=== PATIENT | female | born 1940 | race Caucasian/White ===

== ENCOUNTER → 2016-12-19 | Day surgery (SDC) | payer OTHER, BC ==
[2016-12-12 13:32] VITALS: Ht 162.6 cm; Wt 67.3 kg
[~2016-12-19] VITALS: Ht 162.6 cm; Wt 67.3 kg
[~2016-12-19] MED LIST: ATROPINE SULFATE 0.1 MG/ML 5ML SYR IV PRN; BUPIVACAINE/EPINEPHRINE 0.5% MPF 1:200,000 30 ML VIAL ONE; CALC-354 PO; CEFAZOLIN 1000MG/55 ML D5W IV SCH; CHLOTAB3 PO; CITA20TA9 PO; DLM30 PO; DRGTP25 TD; EpHEDrine SULFATE INJ 50 MG/ML AMP IV PRN; FENTANYL CITRATE INJ 50 MCG/1 ML 2 ML VIAL IV PRN; FENTANYL CITRATE INJ 50 MCG/1 ML 2 ML VIAL ONE; FNTTP25 TOP; GABA1CAP5 PO; GINGER ROOT PO; LACTATED RINGER'S 1000ML 1,000 ML IV SCH; LEVO75CA2 PO; LIDOCAINE HCL 2% 2 ML VIAL (20MG/ML) ONE; LIDOCAINE/EPINEPHRINE 1% INJ 50 ML VIAL ONE; MAGN1TAB15 PO; METOCLOPRAMIDE HCL INJ 5 MG/ML 2 ML VIAL IV PRN; MIDAZOLAM HCL 1 MG/ML 2ML VIAL ONE; MULT-506 PO; ONDA4TAB46 PO; ONDANSETRON INJ 2 MG/ML 2 ML VIAL IV PRN; OXYC-57 PO; OXYCODONE/ACETAMINOPHEN 5-325 TAB PO PRN; PANT40TA PO; POTA10CA28 PO; PROM25TA9 PO; PROPOFOL IV EMULSION 10 MG/ML 20 ML VIAL IV ONE; SIMV20TA2 PO; SODIUM CHLORIDE 0.9% 1000ML 1,000 ML IV SCH; TRIA37.5 PO; TYLOTC500 PO
--- NOTE | 2016-12-19 08:03 | History & Physical Bridge Note ---
H&P Re-Evaluation Bridge Note: I have examined the patient, reviewed the History & Physical and in the interval since the performance of the History & Physical I have noted the following changes of clinical significance: No changes noted
--- NOTE | 2016-12-19 08:57 | [facility] Post Operative Brief Note ---
Immediate Operative Summary Operative Date Dec 19, 2016. Pre-Operative Diagnosis Left Carpal Tunnel Syndrome Post-Operative Diagnosis Same Procedure(s) Performed Left Carpal Tunnel Release Surgeon Dr. Mon Adjustment Examiner Surgeon(s) Bashir Maria PA-C, kellee coulter ms3 Estimated Blood Loss Minimal Findings none Specimens None Anesthesia local with IV sedation Complication(s) None Disposition Recovery Room / PACU
[2016-12-19 08:58] VITALS: TEMP 36.5
--- NOTE | 2016-12-19 08:59 | Medical Student: [facility] ---
Immediate Operative Summary Operative Date Dec 19, 2016. Pre-Operative Diagnosis Left Carpal Tunnel Syndrome Post-Operative Diagnosis Left Carpal Tunnel Syndrome Procedure(s) Performed Left Carpal Tunnel Release Surgeon Dr. Mon Agile Business Analyst Surgeon(s) XAVIER Maria PA-C Estimated Blood Loss Minimal Findings None Specimens None Complication(s) None Disposition Recovery Room / PACU
--- NOTE | 2016-12-19 08:59 | [facility] Operative Report ---
Operative Report Operative Date Dec 19, 2016. Pre-Operative Diagnosis Left Carpal Tunnel Syndrome Post-Operative Diagnosis Same Procedure(s) Performed Left Carpal Tunnel Release Surgeon Dr. Mon Manufacturing Analyst Surgeon(s) Bashir Maria PA-C, kellee coulter ms3 Estimated Blood Loss Minimal Findings NA Specimens None Complication(s) None Disposition Recovery Room / PACU I attest to the content of the Intraoperative Record and any orders documented therein. Any exceptions are noted below.
--- NOTE | 2016-12-19 09:02 | Discharge Instructions ---
Discharge Instructions Admission Reason for Admission: Left Carpal Tunnel Syndrome;Z01.818,G56.02 Discharge Discharge Diagnosis / Problem: Left carpal tunnel release Discharge Goals Goal(s): Decrease discomfort, Improve function, Increase independence Activity Recommendations Activity Limitations: as noted below Lifting Limitations: until after follow-up appointment Exercise/Sports Limitations: until after follow-up appointment May Resume Sexual Activity: when tolerated Shower/Bathe: tomorrow, keep incision dry Driving or Machine Use: resume 1 day after discharge No lifting with left upper extremity . Instructions / Follow-Up Instructions / Follow-Up The following are instructions to follow after minor hand surgery. ACTIVITY RECOMMENDATIONS: * Minimize activity until your first visit after surgery. * No excessive walking, jogging, sports or laboring. * Return to activity is individualized. Most patients are able to return to everyday activities within 2 weeks. * Return to sports or intensive labor usually occurs at 1-2 months. * DRIVING: Driving may be resumed when you feel you have adequate pain control and use of the hand. * BATHING: You may shower or sponge-bathe immediately after surgery. The dressing will need to be covered with a plastic bag or plastic wrap until the dressing is changed on the fourth or fifth day after surgery. Once the dressing has been changed on the fourth or fifth day after surgery, you may shower and get the incision wet. * Wash with regular soap and water. * Do not bathe (submerge the incision), soak, swim or use a hot tub until the incision is completely healed over with normal skin and the doctor has given the OK to proceed. * There is no need to apply any ointments, powders or salves to your incision. * Do not apply alcohol or hydrogen peroxide directly to the incision. Diluted peroxide (50:50 mixture with sterile saline) may be used to clean dried blood from around the incision area. WORK/SCHOOL: * You may return to sedentary work or school when you are feeling comfortable. This is usually 3-7 days after surgery. * Expect increased discomfort with increased activity. Continue to elevate and ice the hand as much as possible. DIET: * Resume previous diet. MEDICATIONS: * You will have a prescription for pain medication and an anti-inflammatory medication after surgery. Use the pain pills for severe pain and the anti-inflammatory for less severe pain. * Once the pain pills have run out, try to use the anti-inflammatory. If this is not effective then contact the office for assistance. * The pain medication may cause nausea, constipation and sleepiness. You should see how they affect you before driving or similar activity. * The anti-inflammatory may cause stomach upset and bleeding. If this occurs, let your doctor know immediately . * Some patients may need blood clot prevention. This can be done with either a pill or a simple shot. Your doctor will advise you on when to begin these medications and how to take them. * Do not take aspirin or other anti-inflammatory products (i.e. Advil or Aleve ) if taking blood thinner medication. * Take a stool softener like Colace or a stimulant like Senokot to prevent constipation. SPECIAL CARE INSTRUCTIONS: ICE: * Do not apply ice directly to the skin. * Use a thin dressing or stockinet between the skin and ice bag. The dressing in place after surgery will suffice. * Apply ice for 20-30 minutes and repeat every 2-4 hours. This is especially important for the first 3-7 days after surgery. * Once the pain improves, use ice as needed. ELEVATION: * Keep your hand elevated at or above the level of your heart as much as possible. * Expect some increased discomfort and swelling if you allow your hand to hang down for any length of time. DRESSING: * Your dressing will be changed 4-5 days after surgery by the physical therapist or physician's assistant secretary. Leave your dressing intact until this time. * You may then change your dressing daily with clean dry gauze or Band-aids and a soft wrap or stockinet. * Always wash your hands prior to touching the incision area. * Once the stitches are removed, you may leave the wound open to air or cover with a thin bandage. * There is no need to apply any ointments, powders or salves to your incision. * Expect some bloody drainage for the first few days after surgery. * Leave the tape strips in place (if present) for 5-7 days. * The initial dressing after surgery may become soaked with blood or fluid which is normal. You may reinforce your dressing with clean, dry gauze as needed. BRACE: * Bracing is generally not needed after routine hand surgery. THERAPY: * Physical therapy may be prescribed after your surgery. * For carpal tunnel and trigger digit surgery you may begin moving your fingers and wrist immediately after surgery as tolerated. * Be careful to not overuse. * Once the sutures are removed, further range of motion exercises can be performed. * Hand incisions may be very sensitive for a few months after surgery so avoid excessive pressure on the incision. If necessary, use a padded weightlifters' glove. * You may massage the incision with skin cream to make it less sensitive and reduce scarring. * Hand strength usually returns with normal use. * If needed, squeezing a soft sponge or Play-dough may help. * Your doctor will recommend physical therapy if necessary. PROBLEMS/QUESTIONS: * If you have any problems such as severe pain, numbness, tingling or high fevers or if you have any questions, please contact the office at [phone]. * It is not uncommon to have some numbness and tingling after the surgery especially if you have had a nerve block done. This should gradually improve over the first 1- 2 days. If this persists longer or worsens then contact the office. FOLLOW UP VISIT: * If not already scheduled, please call the office at to schedule follow-up appointments for approximately 10 days, 6 weeks and 3 months after surgery. Current Hospital Diet Patient's current hospital diet: Discharge Diet Recommended Diet: Regular Diet Procedures Procedures Performed: Left Carpal Tunnel Release Pending Studies Studies pending at discharge: no Medical Emergencies . Who to Call and When: Medical Emergencies: If at any time you feel your situation is an emergency, please call 911 immediately. . Non-Emergent Contact Non-Emergency issues call your: Primary Care Provider Call Non-Emergent contact if: temperature is above 101.5, your pain is not controlled, wound has increased drainage, you have any medication questions . "Provider Documentation" section prepared by Pardeep Maria. VTE Core Measure Inpt VTE Proph given/why not?: Treatment not indicated [place] Drug Monitoring Program Search Results: no issues identified
--- NOTE | 2016-12-19 09:21 | Anesthesiology Progress Note ---
Anesthesia Post Op Note Date & Time Dec 19, 2016 at 09:21 Vital Signs Pain Intensity: 0 Vital Signs Past 12 Hours Date Time Temp Pulse Resp B/P Pulse Ox O2 Delivery O2 Flow Rate FiO2 12/19/16 08:58 36.5 57 16 144/74 98 Room Air 12/19/16 07:10 36.9 58 18 144/82 95 Room Air Notes Mental Status: alert / awake / arousable, participated in evaluation Pt Amnestic to Procedure: Yes Nausea / Vomiting: adequately controlled Pain: adequately controlled Airway Patency, RR, SpO2: stable & adequate BP & HR: stable & adequate Hydration State: stable & adequate Anesthetic Complications: no major complications apparent
[2016-12-19 09:22] VITALS: BP 128/61; PULSE 64; O2SAT 95
--- NOTE | 2016-12-19 09:22 | OPERATIVE REPORT ---
DATE OF OPERATION: 12/19/2016 PREOPERATIVE DIAGNOSIS: Left carpal tunnel syndrome. POSTOPERATIVE DIAGNOSIS: Same. PROCEDURE: Open left carpal tunnel release. SURGEON: Dr. Jay Mon. BELT TENDER: Bashir Maria, physician's assistant center director. No resident or fellow available. SECOND BELT TENDER: Richard Adair, [employer] third year medical student. ANESTHESIA: Local with IV sedation. INDICATIONS OF PROCEDURE: The patient is a 76-year-old female with left carpal tunnel syndrome, which has been refractory to nonsurgical methods of management and she has elected to proceed with operative intervention. PROCEDURE IN DETAIL: Informed consent was obtained. The patient was identified as Christina Andrews. She identified the operative site as the left hand. I marked it with my initials. A preop surgical time-out was performed. A preop dose of IV antibiotics was given. She was taken to the operating room and positioned supine on the hospital stretcher. The left arm was placed on a hand table and a tourniquet on the left upper arm. The examination was unremarkable. The limb was prepped and draped in the usual sterile fashion. A carpal tunnel block with approximately 8 mL of 1% lidocaine with epinephrine was given. Left arm prepped and draped in the usual sterile fashion. DVT prophylaxis was not indicated. The limb was exsanguinated with the Esmarch and tourniquet inflated to 225 mmHg. A longitudinal incision was made in line with the 3rd webspace beginning at Philip's cardinal line and proceeding just short of the distal wrist crease. Blunt dissection was performed to subcutaneous tissues. Superficial palmar fascia was divided. Transverse carpal ligament was identified and divided in line with the 3rd webspace proximally and distally. Proximally up into the distal forearm fascia, a good wide decompression was obtained. The nerve and the contents of the carpal canal looked normal. The wound was irrigated and closed with horizontal mattress interrupted 4-0 nylon sutures and a soft sterile dressing was applied. The tourniquet was let down after approximately 20 minutes of inflation. There were no specimens or complications. Counts were correct at the end of case. Blood loss was minimal. At the conclusion of the operation, I spoke to the patient's and informed him of my findings. Postoperative instructions were given. She will be rehabilitated according to the carpal tunnel pathway. I attest to the content of the Intraoperative Record and any orders documented therein. Any exceptio ns are noted below.
== END | disposition home or self-care (01) ==
LOC: X.SURG 06:53
PROVIDERS: ATTEND Physical Medicine & Rehabilitation Sports Medicine
DX: G56.02 Carpal tunnel syndrome, left upper limb (principal); F41.9 Anxiety disorder, unspecified; F32.9 Major depressive disorder, single episode, unspecified; I10 Essential (primary) hypertension; E03.9 Hypothyroidism, unspecified; E78.5 Hyperlipidemia, unspecified; Z88.8 Allergy status to other drugs, medicaments and biological substances; Z82.49 Family history of ischemic heart disease and other diseases of the circulatory system

== ENCOUNTER → 2017-03-03 | Outpatient (CLI) | payer OTHER, BC ==
[~2017-03-03] MED LIST changes: -ATROPINE SULFATE 0.1 MG/ML 5ML SYR IV PRN; -BUPIVACAINE/EPINEPHRINE 0.5% MPF 1:200,000 30 ML VIAL ONE; -CEFAZOLIN 1000MG/55 ML D5W IV SCH; -EpHEDrine SULFATE INJ 50 MG/ML AMP IV PRN; -FENTANYL CITRATE INJ 50 MCG/1 ML 2 ML VIAL IV PRN; -FENTANYL CITRATE INJ 50 MCG/1 ML 2 ML VIAL ONE; -LACTATED RINGER'S 1000ML 1,000 ML IV SCH; -LIDOCAINE HCL 2% 2 ML VIAL (20MG/ML) ONE; -LIDOCAINE/EPINEPHRINE 1% INJ 50 ML VIAL ONE; -METOCLOPRAMIDE HCL INJ 5 MG/ML 2 ML VIAL IV PRN; -MIDAZOLAM HCL 1 MG/ML 2ML VIAL ONE; -ONDANSETRON INJ 2 MG/ML 2 ML VIAL IV PRN; -OXYCODONE/ACETAMINOPHEN 5-325 TAB PO PRN; -PROPOFOL IV EMULSION 10 MG/ML 20 ML VIAL IV ONE; -SODIUM CHLORIDE 0.9% 1000ML 1,000 ML IV SCH
--- NOTE | 2017-03-03 16:15 | ECHOCARDIOGRAM REPORT ---
*NOTICE TO RECEIVING CONSTITUTION PARTY AGENCY This information is strictly Confidential and protected under [place] law. [place] law prohibits you from making any further disclosure of this information unless further disclosure is expressly permitted by the written consent of the person to whom it pertains or is authorized by law. A general authorization for the release of medical or other information is not sufficient for this purpose. Hospital accepts no responsibility if the information is made available to any other person, INCLUDING THE PATIENT. Interpretation Summary * Name: ASHKAN COELHO Study Date: 03/03/2017 12:59 PM BP: 136/53 mmHg * Patient Location: [facility] HR: 58 * : 1940 (M/d/yyyy) Gender: Female Height: 756 in * Age: 76 yrs Ethnicity: [place] Weight: 148 lb * Ordering Physician: Valeriy Payan * Referring Physician: Valeriy Payan * Performed By: Mildred Richardson RDCS * * Reason For Study: HEART MURMUR, PULM HTN * BSA: 10.3 m2 * -- Conclusions -- * 1. Normal LV size. Borderline concentric LVH. * 2. Normal LV systolic function. LVEF 60-65%. No regional wall motion abnormalities. * 3. Normal RV size and function. * 4. Mild aortic sclerosis without stenosis. * 5. Normal estimated PA and RA pressures. * 6. No prior studies for comparison. Procedure Details * A complete two-dimensional transthoracic echocardiogram was performed (2D, M-mode, Doppler and color flow Doppler). Left Ventricle * The left ventricle is grossly normal size. * There is borderline concentric left ventricular hypertrophy. * Ejection Fraction = 60-65%. * No regional wall motion abnormalities noted. Right Ventricle * The right ventricle is grossly normal size. * The right ventricular systolic function is normal as assessed by tricuspid annular plane systolic excursion (TAPSE) (normal >1.5 cm). Atria * The left atrial size is normal. * Right atrial size is normal. * No ASD detected; PFO is not assessed. Mitral Valve * There is mild mitral annular calcification. * The mitral valve leaflets appear thickened, but open well. * There is no mitral valve stenosis. * There is trace mitral regurgitation. Tricuspid Valve * The tricuspid valve is not well visualized, but is grossly normal. * There is no tricuspid stenosis. * There is trace tricuspid regurgitation. * Right ventricular systolic pressure is elevated at 30-40mmHg. Aortic Valve * Aortic valve sclerosis moderate, without significant aortic valvular stenosis. * The aortic valve is trileaflet. * There is no significant aortic regurgitation. Pulmonic Valve * The pulmonary valve is inadequately visualized, but the Doppler data is adequate for interpretation. * Pulmonic stenosis is absent. * There is no significant pulmonary regurgitation. Great Vessels * The aortic root and proximal ascending aorta are normal sized. Pericardium/Pleural * There is no pericardial effusion. Great Vessels * Normal inferior vena cava size and collapsability with sniff indicates a normal right atrial pressure of 3 mmHg * There is no evidence of pulmonary hypertension. The PA systolic pressure is less than 36 mmHg. Left Ventricular Diastolic Function * Grade I diastolic dysfunction, (abnormal relaxation pattern). MMode 2D Measurements and Calculations IVSd 0.99 cm IVSs 1.4 cm LVIDd 3.0 cm LVIDs 2.0 cm LVPWd 1.2 cm LVPWs 1.5 cm IVS/LVPW 0.83 FS 33.5 % EDV(Teich) 35.5 ml ESV(Teich) 12.8 ml EF(Teich) 63.9 % EDV(cubed) 27.5 ml ESV(cubed) 8.1 ml EF(cubed) 70.6 % % IVS thick 44.7 % % LVPW thick 23.8 % LV mass(C)d 94.3 grams LV mass(C)dI 9.1 grams/m\S\2 LV mass(C)s 92.2 grams LV mass(C)sI 8.9 grams/m\S\2 SV(Teich) 22.7 ml SI(Teich) 2.2 ml/m\S\2 SV(cubed) 19.4 ml SI(cubed) 1.9 ml/m\S\2 Ao root diam 2.6 cm Ao root area 5.4 cm\S\2 LA dimension 3.1 cm LA/Ao 1.2 LVAd ap4 26.0 cm\S\2 LVLd ap4 7.5 cm EDV(MOD-sp4) 74.1 ml EDV(sp4-el) 76.4 ml LVAs ap4 14.5 cm\S\2 LVLs ap4 6.1 cm ESV(MOD-sp4) 30.4 ml ESV(sp4-el) 29.4 ml EF(MOD-sp4) 58.9 % EF(sp4-el) 61.5 % LVAd ap2 25.5 cm\S\2 LVLd ap2 7.4 cm EDV(MOD-sp2) 74.9 ml EDV(sp2-el) 75.1 ml LVAs ap2 14.1 cm\S\2 LVLs ap2 6.3 cm ESV(MOD-sp2) 28.1 ml ESV(sp2-el) 26.8 ml EF(MOD-sp2) 62.4 % EF(sp2-el) 64.3 % LVLd %diff -2.37 % EDV(MOD-bp) 75.9 ml LVLs %diff 3.2 % ESV(MOD-bp) 29.4 ml EF(MOD-bp) 61.3 % SV(MOD-sp4) 43.6 ml SI(MOD-sp4) 4.2 ml/m\S\2 SV(MOD-sp2) 46.8 ml SI(MOD-sp2) 4.5 ml/m\S\2 SV(MOD-bp) 46.5 ml SI(MOD-bp) 4.5 ml/m\S\2 SV(sp4-el) 47.0 ml SI(sp4-el) 4.6 ml/m\S\2 SV(sp2-el) 48.3 ml SI(sp2-el) 4.7 ml/m\S\2 Doppler Measurements and Calculations MV E max helga 113.0 cm/sec MV A max helga 118.4 cm/sec MV E/A 0.95 MV dec time 0.30 sec Ao V2 max 167.2 cm/sec Ao max PG 11.2 mmHg Ao max PG (full) 3.6 mmHg LV V1 max PG 7.5 mmHg LV V1 max 137.3 cm/sec TR max helga 282.7 cm/sec
== END | disposition home or self-care (01) ==
LOC: C.CPL 12:50
PROVIDERS: ATTEND Anesthesiology Pain Medicine
DX: Z01.818 Encounter for other preprocedural examination (principal); I27.2 Other secondary pulmonary hypertension; R01.1 Cardiac murmur, unspecified

== ENCOUNTER 2017-03-30 18:46 | Inpatient (IN) | payer OTHER, BC ==
[~2017-03-30] VITALS: Ht 160 cm; Wt 68.0 kg
[~2017-03-30 18:46] MED LIST changes: -FNTTP25 TOP; -ONDA4TAB46 PO
[2017-03-30] MEDS ORDERED: SODIUM CHLORIDE 0.9% 1000ML 1,000 ML IV STA (18:59)
--- NOTE | 2017-03-30 19:33 | DIAGNOSTIC IMAGING REPORT ---
CHEST ONE VIEW PORTABLE HISTORY: EVALUATE GI BLEED COMPARISON: Chest 11/04/2012. FINDINGS: Linear density at the right lung base consistent with subsegmental atelectasis or scarring. The lungs are otherwise clear. The heart is mildly enlarged. This remains unchanged. No pleural effusions. No pneumothorax. Bilateral shoulder arthroplasties. IMPRESSION: Stable mild cardiomegaly. No acute process within the chest. Electronically signed by: Bernardo Pastrana M.D. 03/30/2017 7:31 PM Dictated Date/Time: 03/30/2017 7:30 PM
[2017-03-30 19:39] LABS: BASO % 0.1 %; BASO ABS # 0.01 K/uL (0-0.2); COMPLETE YES; EOS % 3.2 %; HEMATOCRIT 35.8 % (37-47); IG% 0.4 %; LYMPH % 25.7 %; LYMPH ABS # 1.99 K/uL (1.2-3.4); MEAN CELL VOLUME 91.3 fL (80-100); MEAN CORPUSCULAR HEMOGLOBIN 28.1 pg (25-34); MEAN CORPUSCULAR HGB CONC 30.7 g/dl (32-36); MEAN PLATELET VOLUME 8.7 fL (7.4-10.4); MONO % 9.1 %; NEUT % 61.5 %; PLATELET COUNT 358 K/uL (130-400); RED BLOOD COUNT 3.92 M/uL (4.2-5.4); WHITE BLOOD COUNT 7.73 K/uL (4.8-10.8)
[2017-03-30 19:55] LABS: BUN/CREATININE RATIO 18.7 (10-20); CALCIUM 8.3 mg/dl (8.5-10.1); CREATININE 0.84 mg/dl (0.60-1.20); POTASSIUM 4.3 mmol/L (3.5-5.1)
[2017-03-30] MEDS ORDERED: FNTTP25 TOP (19:55)
[2017-03-30] MEDS ORDERED: ONDA4TAB46 PO (19:55)
[2017-03-30 20:00] LABS: PARTIAL THROMBOPLASTIN RATIO 1.1; PROTHROMBIN TIME (PATIENT) 10.9 SECONDS (9.0-12.0)
--- NOTE | 2017-03-30 20:23 | EMERGENCY ROOM VISIT NOTE ---
History Report prepared by Tuyet: Arminda Thibodeaux Under the Supervision of: Dr. Dontae Valverde D.O. First contact with patient: 18:55 Chief Complaint: RECTAL BLEEDING Stated Complaint: RECTAL PAIN,BLEEDING History of Present Illness The patient is a 76 year old female who presents to the Emergency Room with complaints of an episode of severe rectal bleeding starting this morning. 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 She reports that she felt that she pushed harder than usual and started to bleed. The patient states that she has gone 10-15 times since this morning and all have passed with bright red blood. She reports that some of her bowel movements were just blood and some were hematochezia. She states that it seems like a lot of blood. The patient reports that she had a rectal prolapse surgery at [facility] twenty days ago. She states that she has had no issues except a week and a half ago she had a long car ride and had bleeding that night. The patient complains of diarrhea, lightheadedness, and dizziness. She denies chest pain, shortness of breath, cramps, a history of hemorrhoids, and the use of blood thinners. Source of History: patient Onset: this morning Position: other (rectum) Symptom Intensity: severe Timing: other (episode) Associated Symptoms: + hematochezia, + diarrhea, No chest pain, No SOB Note: The patient complains of dizziness and lightheadedness. She denies any cramping. Review of Systems See HPI for pertinent positives & negatives. A total of 10 systems reviewed and were otherwise negative. Past Medical & Surgical Medical Problems: (1) HX-ORAL/PHARYNX MALG NEC (2) HYPERLIPIDEMIA NEC/NOS (3) HYPERTENSION NOS (4) KNEE JOINT REPLACEMENT STATUS Surgical Problems: (1) Rectal prolapse Family History Unknown Social History Smoking Status: Former Smoker Alcohol Use: occasionally Drug Use: none Marital Status: Housing Status: lives with significant other Current/Historical Medications Scheduled Acetaminophen (Tylenol), 500 MG PO QID Calcium Carbonate-Cholecalcife (Caltrate 600+D), 1 TAB PO QAM Chlorzoxazone (Parafon Forte Dsc), 500 MG PO QID Citalopram Hydrobromide (Celexa), 30 MG PO QAM Fentanyl (Fentanyl), 25 MCG TOP Q72 Flurazepam Hcl (Dalmane), 30 MG PO HS Gabapentin (Neurontin), 400 MG PO QID Levothyroxine Sodium (Tirosint), 1 CAP PO HS Magnesium Chloride-Calcium Car (Slow Magnesium Chloride/ 70-117 mg), 1 TAB PO BID Multivitamin (Multivitamin), 1 TAB PO QAM Oxycodone/Acetaminophen 5MG/325MG (Percocet 5MG/325MG), 1 TAB PO QID Pantoprazole (Protonix), 40 MG PO BID Potassium Chloride (Micro-K Ext Rel), 10 MEQ PO BID Simvastatin (Zocor), 20 MG PO QPM Triamterene/Hctz (Dyazide 37.5MG/25MG), 1 TAB PO QAM Scheduled PRN Ondansetron Hcl (Zofran), 4 MG PO TID PRN for Nausea or Vomiting Promethazine Hcl (Phenergan), 25 MG PO Q6H PRN for Nausea Allergies Coded Allergies: Azelastine (Verified Allergy, Unknown, ? REMEMBER, DIDN'T AGREE WITH PT, ) Baclofen (Verified Allergy, Unknown, DIDN'T AGREE WITH PT, 03/30/17) Prednisone (Verified Allergy, Unknown, FEELING STRANGE, 03/30/17) Physical Exam Vital Signs Date Time Temp Pulse Resp B/P (MAP) Pulse Ox O2 Delivery O2 Flow Rate FiO2 03/30/17 20:01 70 16 109/43 92 Room Air 03/30/17 19:35 67 03/30/17 18:49 36.8 81 18 72/46 93 Room Air Physical Exam CONSTITUTIONAL/VITAL SIGNS: Reviewed / noted above. GENERAL: Non-toxic in appearance. INTEGUMENTARY: Warm, dry, and Decker. HEAD: Normocephalic. EYES: without scleral icterus or trauma. ENT/OROPHARYNX: clear and moist. LYMPHADENOPATHY/NECK: Is supple without lymphadenopathy or meningismus. RESPIRATORY: Lungs clear and equal. CARDIOVASCULAR: Regular rate and rhythm. GI/ABDOMEN: Soft and nontender. No organomegaly or pulsatile mass. No rebound or guarding. Normal bowel sounds. Rectal exam revealed some dried blood externally around rectus site. No obvious external bleeding. Rectal exam revealed some tenderness and tightness. No appreciated hemorrhoids. Gross blood on exam. EXTREMITIES: Warm and well perfused. BACK: No CVA tenderness. NEUROLOGICAL: Intact without focal deficits. PSYCHIATRIC: normal affect. MUSCULOSKELETAL: Normally developed with good muscle tone. Medical Decision & Procedures ER Provider Diagnostic Interpretation: Radiology results as stated below per my review and radiologist interpretation: CHEST ONE VIEW PORTABLE HISTORY: EVALUATE GI BLEED COMPARISON: Chest 11/04/2012. FINDINGS: Linear density at the right lung base consistent with subsegmental atelectasis or scarring. The lungs are otherwise clear. The heart is mildly enlarged. This remains unchanged. No pleural effusions. No pneumothorax. Bilateral shoulder arthroplasties. IMPRESSION: Stable mild cardiomegaly. No acute process within the chest. Electronically signed by: Bernardo Pastrana M.D. 03/30/2017 7:31 PM Dictated Date/Time: 03/30/2017 7:30 PM Laboratory Results 03/30/17 19:25 Red Blood Count 3.92, Mean Corpuscular Volume 91.3, Mean Corpuscular Hemoglobin 28.1, Mean Corpuscular Hemoglobin Concent 30.7, Mean Platelet Volume 8.7, Neutrophils (%) (Auto) 61.5, Lymphocytes (%) (Auto) 25.7, Monocytes (%) (Auto) 9.1, Eosinophils (%) (Auto) 3.2, Basophils (%) (Auto) 0.1, Neutrophils # (Auto) 4.75, Lymphocytes # (Auto) 1.99, Monocytes # (Auto) 0.70, Eosinophils # (Auto) 0.25, Basophils # (Auto) 0.01 03/30/17 19:25 Test 03/30/17 19:25 White Blood Count 7.73 K/uL (4.8-10.8) Red Blood Count 3.92 M/uL (4.2-5.4) Hemoglobin 11.0 g/dL (12.0-16.0) Hematocrit 35.8 % (37-47) Mean Corpuscular Volume 91.3 fL (80-100) Mean Corpuscular Hemoglobin 28.1 pg (25-34) Mean Corpuscular Hemoglobin Concent 30.7 g/dl (32-36) Platelet Count 358 K/uL (130-400) Mean Platelet Volume 8.7 fL (7.4-10.4) Neutrophils (%) (Auto) 61.5 % Lymphocytes (%) (Auto) 25.7 % Monocytes (%) (Auto) 9.1 % Eosinophils (%) (Auto) 3.2 % Basophils (%) (Auto) 0.1 % Neutrophils # (Auto) 4.75 K/uL (1.4-6.5) Lymphocytes # (Auto) 1.99 K/uL (1.2-3.4) Monocytes # (Auto) 0.70 K/uL (0.11-0.59) Eosinophils # (Auto) 0.25 K/uL (0-0.5) Basophils # (Auto) 0.01 K/uL (0-0.2) RDW Standard Deviation 45.8 fL (36.4-46.3) RDW Coefficient of Variation 13.7 % (11.5-14.5) Immature Granulocyte % (Auto) 0.4 % Immature Granulocyte # (Auto) 0.03 K/uL (0.00-0.02) Prothrombin Time 10.9 SECONDS (9.0-12.0) Prothromb Time International Ratio 1.0 (0.9-1.1) Activated Partial Thromboplast Time 27.5 SECONDS (21.0-31.0) Partial Thromboplastin Ratio 1.1 Anion Gap 6.0 mmol/L (3-11) Est Creatinine Clear Calc Drug Dose 54.6 ml/min Estimated GFR () 79.4 Estimated GFR (Non- 68.5 BUN/Creatinine Ratio 18.7 (10-20) Calcium Level 8.3 mg/dl (8.5-10.1) Laboratory results as stated above per my review. Medications Administered Medications (Trade) Dose Ordered Sig/Bon Route Start Time Stop Time Status Last Admin Dose Admin Sodium Chloride 1,000 ml @ 250 mls/hr Q4H STAT IV 03/30/17 18:59 03/30/17 22:58 03/30/17 19:36 250 MLS/HR ED Course 1855: Previous medical records were reviewed. The patient was evaluated in room A9B. A complete history and physical examination was performed. 1858: Ordered NSS 1000 ml @ 250 mls/hr IV. 1918: Discussed the patient's case with Dr. Paresh FLORES. He believes that after labs return we should call Dr. Jamil in [facility] who completed her surgery to determine if she should be further evaluated here at [facility] or at [facility]. 1957: Discussed the patient's case with Dr. Jamil- [facility]. He states that she would be fine to be evaluated for further treatment at [facility]. 2009: Discussed the patient's case with Dr. Garcias's residents- Dr. Chaudhari. The patient will be evaluated for further treatment and disposition. 2020: I reevaluated the patient and she is resting comfortably. I discussed the results and the treatment plan with her. She verbalized understanding and agreement. The patient will be evaluated for further treatment. Medical Decision Medication Reconciliation: I attest that I have personally reviewed the patient' s current medication list. Blood pressure Screening: Patient was found to have normal blood pressure on screening and does not require follow-up. Differential diagnosis: Etiologies such as diverticulosis, AVM, coagulopathy, colitis, inflammatory bowel disease, malignancy, Lisha-Silva tear, esophagitis, peptic ulcer disease , variceal bleed, gastritis, epistaxis, fissure, hemorrhoids, as well as others were entertained. This is a 76-year-old female who presents to the ED with a chief complaint of rectal bleeding. The patient reports that she has had about 15 bloody bowel movements since early this morning. The patient states that she had rectal prolapse surgery on the . Her bleeding has been bright red. She has had a little lightheadedness at times. She has no other specific complaints. No abdominal pains. No nausea vomiting. No fevers. She denies any pain in her rectal area. Her initial blood pressure was documented at 72/46 low she was walking about the room without any distress when I arrived to evaluate her. Her blood pressure upon my evaluation was 140/62. Repeat blood pressure was in the low 100s. She is not tachycardic and does not take medication to prevent tachycardia. The patient had one small bowel movement here that was bloody and amounted to about 10 mL of blood. The patient feels like her symptoms may be subsiding. I did speak with Dr. Campa (polishing machine tender for Dr. Miles) from colorectal surgery at [facility]. He feels that the symptoms might be related to the anastomosis site and feels this would be self-limiting. He did not feel that the patient has to be transferred to [facility] at this time and that observation here overnight would be reasonable. The patient is agreeable to this. I spoke with Dr. Garner from who states he could see the patient tomorrow if admitted here. The patient is comfortable with staying here overnight to monitor her bleeding. The patient remained hemodynamically stable during her ED stay. She was given some IV fluids. I spoke with the hospital service who will see the patient for observation. Consults Time Called: 1916 Consulting Physician: Dr. Paresh FLORES Returned Call: 1918 Discussed the patient's case with Dr. Garner. He believes that after labs return we should call Dr. Jamil in [facility] who completed her surgery to determine if she should be further evaluated here at [facility] or at [facility]. Additional Consults: Time Called: 1949 Consulted Physician: Dr. Deepti Robertson Returned Call: 1957 Additional Comments: Discussed the patient's case with Dr. Tatum [facility] . He states that she would be fine to be evaluated for further treatment at [facility]. Time Called: 2006 Consulted Physician: Dr. Garcias's residents- Dr. Chaudhari Returned Call: 2009 Additional Comments: Discussed the patient's case with Dr. Garcias's residents. The patient will be evaluated for further treatment and disposition. Impression Primary Impression: Rectal bleed Scribe Attestation The scribe's documentation has been prepared under my direction and personally reviewed by me in its entirety. I confirm that the note above accurately reflects all work, treatment, procedures, and medical decision making performed by me. Departure Information Dispostion Being Evaluated By Hospitalist Referrals Krzysztof Ramos M.D. (PCP) Patient Instructions My [facility]
--- NOTE | 2017-03-30 21:26 | History and Physical ---
History & Physical Date & Time of Service: Mar 30, 2017 at 21:24 Chief Complaint: Rectal Pain,Bleeding Primary Care Physician: Krzysztof Ramos M.D. History of Present Illness Source: patient 76-year-old female with a past medical history of hypertension, hypothyroidism, hyperlipidemia, rectal prolapse status post surgery at [facility] about 20 days ago presented to the ER with complaints of rectal bleeding that started this morning. The patient stated that she had experienced 10-15 episodes of bright red bleeding per rectum with bowel movement after she woke up this morning. She stated that she had to strain this morning for her bowel movement after which the bleeding began. Denies any abdominal pain, rectal pain, nausea or vomiting, fevers or chills. She has some lower abdominal discomfort. Denies any chest pain, palpitations, shortness of breath but had some lightheadedness. She recently had undergone surgery for rectal prolapse at [facility] about 20 days ago. Her recovery has been an uneventful except for an episode of rectal bleeding a few days ago which had resolved on its own. 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 REMEMBER, DIDN'T AGREE WITH PT, ) Baclofen (Verified Allergy, Unknown, DIDN'T AGREE WITH PT, 03/30/17) Prednisone (Verified Allergy, Unknown, FEELING STRANGE, 03/30/17) Home Medications Scheduled Acetaminophen (Tylenol), 500 MG PO QID Calcium Carbonate-Cholecalcife (Caltrate 600+D), 1 TAB PO QAM Chlorzoxazone (Parafon Forte Dsc), 500 MG PO QID Citalopram Hydrobromide (Celexa), 30 MG PO QAM Fentanyl (Fentanyl), 25 MCG TOP Q72 Flurazepam Hcl (Dalmane), 30 MG PO HS Gabapentin (Neurontin), 400 MG PO QID Levothyroxine Sodium (Tirosint), 1 CAP PO HS Magnesium Chloride-Calcium Car (Slow Magnesium Chloride/ 70-117 mg), 1 TAB PO BID Multivitamin (Multivitamin), 1 TAB PO QAM Oxycodone/Acetaminophen 5MG/325MG (Percocet 5MG/325MG), 1 TAB PO QID Pantoprazole (Protonix), 40 MG PO BID Potassium Chloride (Micro-K Ext Rel), 10 MEQ PO BID Simvastatin (Zocor), 20 MG PO QPM Triamterene/Hctz (Dyazide 37.5MG/25MG), 1 TAB PO QAM Scheduled PRN Ondansetron Hcl (Zofran), 4 MG PO TID PRN for Nausea or Vomiting Promethazine Hcl (Phenergan), 25 MG PO Q6H PRN for Nausea Review of Systems Constitutional: No fever, No chills Eyes: No worsening of vision ENT: No hearing loss Respiratory: No cough, No sputum, No shortness of breath Cardiovascular: No chest pain, No orthopnea, No PND, No edema, No palpitations Abdomen: + diarrhea, + GI bleeding, No pain, No nausea, No vomiting Musculoskeletal: + joint pain Genitourinary - Female: No dysuria, No urinary frequency, No urinary urgency Neurologic: No memory loss, No paralysis, No numbness/tingling Psychiatric: No depression symptoms Endocrine: No fatigue Physical Exam Vital Signs Date Time Temp Pulse Resp B/P (MAP) Pulse Ox O2 Delivery O2 Flow Rate FiO2 03/30/17 21:13 75 16 126/64 94 Room Air 03/30/17 20:01 70 16 109/43 92 Room Air 03/30/17 19:35 67 03/30/17 18:49 36.8 81 18 72/46 93 Room Air General Appearance: WD/WN, no apparent distress Head: normocephalic Eyes: normal inspection ENT: normal ENT inspection, hearing grossly normal Neck: supple, no adenopathy Respiratory/Chest: chest non-tender, lungs clear, normal breath sounds, no respiratory distress, no accessory muscle use Cardiovascular: regular rate, rhythm Abdomen/GI: normal bowel sounds, non tender, soft Extremities/Musculoskelatal: no pedal edema Neurologic/Psych: alert, normal mood/affect, oriented x 3 Skin: normal color Diagnostics Laboratory Results Results Past 24 Hours Test 03/30/17 19:25 Range/Units White Blood Count 7.73 4.8-10.8 K/uL Red Blood Count 3.92 4.2-5.4 M/uL Hemoglobin 11.0 12.0-16.0 g/dL Hematocrit 35.8 37-47 % Mean Corpuscular Volume 91.3 80-100 fL Mean Corpuscular Hemoglobin 28.1 25-34 pg Mean Corpuscular Hemoglobin Concent 30.7 32-36 g/dl Platelet Count 358 130-400 K/uL Mean Platelet Volume 8.7 7.4-10.4 fL Neutrophils (%) (Auto) 61.5 % Lymphocytes (%) (Auto) 25.7 % Monocytes (%) (Auto) 9.1 % Eosinophils (%) (Auto) 3.2 % Basophils (%) (Auto) 0.1 % Neutrophils # (Auto) 4.75 1.4-6.5 K/uL Lymphocytes # (Auto) 1.99 1.2-3.4 K/uL Monocytes # (Auto) 0.70 0.11-0.59 K/uL Eosinophils # (Auto) 0.25 0-0.5 K/uL Basophils # (Auto) 0.01 0-0.2 K/uL RDW Standard Deviation 45.8 36.4-46.3 fL RDW Coefficient of Variation 13.7 11.5-14.5 % Immature Granulocyte % (Auto) 0.4 % Immature Granulocyte # (Auto) 0.03 0.00-0.02 K/uL Prothrombin Time 10.9 9.0-12.0 SECONDS Prothromb Time International Ratio 1.0 0.9-1.1 Activated Partial Thromboplast Time 27.5 21.0-31.0 SECONDS Partial Thromboplastin Ratio 1.1 Sodium Level 144 136-145 mmol/L Potassium Level 4.3 3.5-5.1 mmol/L Chloride Level 106 98-107 mmol/L Carbon Dioxide Level 32 21-32 mmol/L Anion Gap 6.0 3-11 mmol/L Blood Urea Nitrogen 16 7-18 mg/dl Creatinine 0.84 0.60-1.20 mg/dl Est Creatinine Clear Calc Drug Dose 54.6 ml/min Estimated GFR () 79.4 Estimated GFR (Non- 68.5 BUN/Creatinine Ratio 18.7 10-20 Random Glucose 110 70-99 mg/dl Calcium Level 8.3 8.5-10.1 mg/dl Diagnostic Radiology [~ rep ct add3]] CHEST ONE VIEW PORTABLE HISTORY: EVALUATE GI BLEED COMPARISON: Chest 11/04/2012. FINDINGS: Linear density at the right lung base consistent with subsegmental atelectasis or scarring. The lungs are otherwise clear. The heart is mildly enlarged. This remains unchanged. No pleural effusions. No pneumothorax. Bilateral shoulder arthroplasties. IMPRESSION: Stable mild cardiomegaly. No acute process within the chest. Electronically signed by: Bernardo Pastrana M.D. 03/30/2017 7:31 PM CXR normal Impression Assessment and Plan 76-year-old female with a past medical history of hypertension, hypothyroidism, hyperlipidemia, rectal prolapse status post surgery at [facility] about 20 days ago presented to the ER with complaints of rectal bleeding that started this morning. VANITA was done in the ER ER had contacted colorectal surgeon motion study analyst at [facility] with advice to be monitored overnight for any active bleeding. Rectal bleeding status post rectal prolapse surgery about 20 days ago: -Hemorrhoidal bleeding versus bleeding from anastomosis - Hemoglobin on presentation at 11, monitor H&H every 6 hours - Nothing by mouth - Consult gastroenterology Hypertension: - Continue home meds Hypothyroidism: - Continue Tirosint( patient is intolerant to Synthroid) Chronic pain: - Patient receives pain medications from pain clinic - Continue Neurontin, fentanyl patch DVT prophylaxis: SCDs Avoid chemical anticoagulation in light of bleeding Full code Disposition: Monitor in telemetry Level of Care Telemetry Resuscitation Status FULL RESUSCITATION VTE Prophylaxis VTE Risk Assessment Done? Y/N: Yes Risk Level: Moderate Given or contraindicated: SCD's, Contraindicated Resident Tracking Resident Involvement: Resident Care Provided Care Provided: Adult Hospital Medicine Assessment and Plan Attending Addendum: I have physically seen and examined this patient, have directed their medical care, have supervised the medical residents activities, and agree with the H&P as noted above, with the following changes: NONE
[2017-03-30] MEDS ORDERED: FENTANYL 25 MCG/HR TDSY TD SCH (21:30)
[2017-03-30] MEDS ORDERED: PROMETHAZINE HCL 25 MG TAB PO PRN (21:30)
[2017-03-30] MEDS ORDERED: IV FLUIDS COMPLETED PRN (21:45)
[2017-03-30 22:22] VITALS: Ht 160 cm; Wt 68.0 kg
[2017-03-30] MEDS: SODIUM CHLORIDE 0.9% 1000ML 1,000 ML IV SCH (23:41)
[2017-03-30] MEDS: CHECK FENTANYL PATCH PLACEMENT SCH (23:41)
[2017-03-30] MEDS: ONDANSETRON INJ 2 MG/ML 2 ML VIAL IV PRN (23:51)
[2017-03-31] MEDS ORDERED: TIROSINT PO STA (00:13)
[2017-03-31] MEDS: OXYCODONE/ACETAMINOPHEN 5-325 TAB PO PRN ×2 (00:49→21:43)
[2017-03-31] MEDS ORDERED: CHLORZOXAZONE 500 MG TAB PO STA (00:56)
[2017-03-31] MEDS ORDERED: FLURAZEPAM HCL 15 MG CAP PO STA (00:56)
[2017-03-31] MEDS ORDERED: GABAPENTIN 400 MG CAP PO STA (00:57)
[2017-03-31] MEDS ORDERED: NURSING VERBAL MED ORDER ONE ×2 (01:00→08:30)
[2017-03-31 01:48] LABS: HEMATOCRIT 31.8 % (37-47)
[2017-03-31 04:00] VITALS: BP 125/68; PULSE 59; TEMP 36.8; O2SAT 94
[2017-03-31 07:38] LABS: BASO % 0.2 %; BASO ABS # 0.01 K/uL (0-0.2); COMPLETE YES; EOS % 6.5 %; HEMATOCRIT 30.4 % (37-47); IG% 0.4 %; LYMPH % 40.5 %; LYMPH ABS # 2.18 K/uL (1.2-3.4); MEAN CELL VOLUME 91.6 fL (80-100); MEAN CORPUSCULAR HEMOGLOBIN 28.9 pg (25-34); MEAN CORPUSCULAR HGB CONC 31.6 g/dl (32-36); MEAN PLATELET VOLUME 8.5 fL (7.4-10.4); MONO % 12.5 %; NEUT % 39.9 %; PLATELET COUNT 262 K/uL (130-400); RED BLOOD COUNT 3.32 M/uL (4.2-5.4); WHITE BLOOD COUNT 5.38 K/uL (4.8-10.8)
[2017-03-31 07:39] VITALS: BP 136/75; PULSE 64; TEMP 36.9; O2SAT 92
[2017-03-31 08:02] LABS: CALCIUM 7.9 mg/dl (8.5-10.1); CREATININE 0.63 mg/dl (0.60-1.20); POTASSIUM 3.8 mmol/L (3.5-5.1)
[2017-03-31 08:05] LABS: ALB/GLOB RATIO 0.9 (0.9-2)
[2017-03-31] MEDS ORDERED: DOCUSATE SODIUM 100 MG CAP ONE (08:36)
[2017-03-31] MEDS ORDERED: POLYETHYLENE (MIRALAX) 17 GM PACK ONE (08:36)
[2017-03-31] MEDS: CHLORZOXAZONE 500 MG TAB PO SCH ×4 (08:39→21:27)
[2017-03-31] MEDS: GABAPENTIN 400 MG CAP PO SCH ×4 (08:39→21:29)
[2017-03-31] MEDS: PANTOprazole SOD 40 MG TAB PO SCH ×2 (08:39→21:28)
[2017-03-31] MEDS: TRIAMTERENE/HCTZ 37.5/25MG CAP PO SCH (08:40)
[2017-03-31] MEDS: CITALOPRAM 20 MG TAB PO SCH (08:40)
[2017-03-31] MEDS: MAGNESIUM CHLORIDE 64MG DELAYED REL TAB PO SCH ×2 (08:41→21:00)
[2017-03-31] MEDS: SODIUM CHLORIDE 0.9% 1000ML 1,000 ML IV SCH ×2 (08:42→19:54)
[2017-03-31] MEDS: DOCUSATE SODIUM 100 MG CAP PO SCH ×2 (08:42→21:28)
[2017-03-31] MEDS: POLYETHYLENE (MIRALAX) 17 GM PACK PO SCH (08:42)
[2017-03-31] MEDS: CHECK FENTANYL PATCH PLACEMENT SCH ×2 (08:43→15:27)
--- NOTE | 2017-03-31 10:57 | Progress Note ---
Subjective Date of Service: Mar 31, 2017. Subjective Pt evaluation today including: conversation w/ patient, physical exam, chart review, lab review, review of studies, review of inpatient medication list Voiding: no voiding problems Reported has two times bloody bowel movement overnight, detail amount is unknown , was up to rest room with assist with nursing staff, denied any dizziness chest pain or difficulty breathing, Reportedly was seen by Dr. Damon and Dr. Lo per GI before Problem List Medical Problems: (1) Dizziness Status: Acute (2) Rectal bleed Status: Acute Review of Systems Constitutional: No fever, No chills, No sweats, No weight loss, No weakness, No fatigue, No problem reported Eyes: No worsening of vision, No eye pain, No redness, No discharge, No diplopia ENT: No hearing loss, No unusual epistaxis, No nasal symptoms, No sore throat, No tinnitus, No dental problems, No trouble swallowing Respiratory: No cough, No sputum, No wheezing, No shortness of breath, No dyspnea on exertion, No dyspnea at rest, No hemoptysis Cardiac: No chest pain, No orthopnea, No PND, No edema, No claudication, No palpitations Abdomen: + GI bleeding, No pain, No nausea, No vomiting, No diarrhea, No constipation Musculoskeletal: No joint pain, No muscle pain, No swelling, No calf pain Female : No dysuria, No urinary frequency, No hematuria, No incontinence, No abnormal vaginal bleeding, No vaginal discharge Neurologic: No memory loss, No paralysis, No weakness, No numbness/tingling, No vertigo, No balance problems Psychiatric: No depression symptoms, No anhedonism, No anxiety, No insomnia, No substance abuse Heme: No abnormal bleeding/bruising, No clotting problems, No swollen lymph nodes, No night sweats Endo: No fatigue, No excessive thirst, No excessive urination Skin: No rash, No itch, No new/changing skin lesions, No color change, No bleeding Objective Vital Signs Date Time Temp Pulse Resp B/P (MAP) Pulse Ox O2 Delivery O2 Flow Rate FiO2 03/31/17 08:30 Room Air 03/31/17 07:39 36.9 64 16 136/75 (95) 92 Room Air 03/31/17 04:00 36.8 59 16 125/68 (87) 94 Room Air 03/31/17 04:00 Room Air 03/31/17 00:00 Room Air 03/30/17 22:22 Room Air 03/30/17 22:03 82 18 133/67 94 Room Air 03/30/17 21:13 75 16 126/64 94 Room Air 03/30/17 20:01 70 16 109/43 92 Room Air 03/30/17 19:35 67 03/30/17 18:49 36.8 81 18 72/46 93 Room Air Physical Exam General Appearance: WD/WN, no apparent distress Eyes: normal inspection, PERRL, EOMI, sclerae normal ENT: normal ENT inspection, hearing grossly normal, pharynx normal Neck: supple, no adenopathy, thyroid normal, no JVD, no carotid bruits, trachea midline Respiratory/Chest: chest non-tender, lungs clear, normal breath sounds, no respiratory distress, no accessory muscle use Cardiovascular: regular rate, rhythm, no edema, no gallop, no JVD, no murmur Abdomen: normal bowel sounds, non tender, soft, no organomegaly, no pulsatile mass Extremities: normal range of motion, non-tender, normal inspection, no pedal edema, no calf tenderness, normal capillary refill, pelvis stable Neurologic/Psychiatric: director engineering II-XII nml as tested, no motor/sensory deficits, alert, normal mood/affect, oriented x 3 Skin: normal color, warm/dry, no rash Lymphatic: no adenopathy Laboratory Results Last 24 Hours Test 03/30/17 19:25 03/31/17 00:57 03/31/17 07:10 White Blood Count 7.73 K/uL 5.38 K/uL Red Blood Count 3.92 M/uL 3.32 M/uL Hemoglobin 11.0 g/dL 9.8 g/dL 9.6 g/dL Hematocrit 35.8 % 31.8 % 30.4 % Mean Corpuscular Volume 91.3 fL 91.6 fL Mean Corpuscular Hemoglobin 28.1 pg 28.9 pg Mean Corpuscular Hemoglobin Concent 30.7 g/dl 31.6 g/dl Platelet Count 358 K/uL 262 K/uL Mean Platelet Volume 8.7 fL 8.5 fL Neutrophils (%) (Auto) 61.5 % 39.9 % Lymphocytes (%) (Auto) 25.7 % 40.5 % Monocytes (%) (Auto) 9.1 % 12.5 % Eosinophils (%) (Auto) 3.2 % 6.5 % Basophils (%) (Auto) 0.1 % 0.2 % Neutrophils # (Auto) 4.75 K/uL 2.15 K/uL Lymphocytes # (Auto) 1.99 K/uL 2.18 K/uL Monocytes # (Auto) 0.70 K/uL 0.67 K/uL Eosinophils # (Auto) 0.25 K/uL 0.35 K/uL Basophils # (Auto) 0.01 K/uL 0.01 K/uL RDW Standard Deviation 45.8 fL 46.5 fL RDW Coefficient of Variation 13.7 % 14.0 % Immature Granulocyte % (Auto) 0.4 % 0.4 % Immature Granulocyte # (Auto) 0.03 K/uL 0.02 K/uL Prothrombin Time 10.9 SECONDS Prothromb Time International Ratio 1.0 Activated Partial Thromboplast Time 27.5 SECONDS Partial Thromboplastin Ratio 1.1 Sodium Level 144 mmol/L 145 mmol/L Potassium Level 4.3 mmol/L 3.8 mmol/L Chloride Level 106 mmol/L 109 mmol/L Carbon Dioxide Level 32 mmol/L 31 mmol/L Anion Gap 6.0 mmol/L 5.0 mmol/L Blood Urea Nitrogen 16 mg/dl 13 mg/dl Creatinine 0.84 mg/dl 0.63 mg/dl Est Creatinine Clear Calc Drug Dose 54.6 ml/min 72.8 ml/min Estimated GFR () 79.4 102.4 Estimated GFR (Non- 68.5 88.4 BUN/Creatinine Ratio 18.7 21.0 Random Glucose 110 mg/dl 94 mg/dl Calcium Level 8.3 mg/dl 7.9 mg/dl Troponin I < 0.015 ng/ml Total Bilirubin 0.3 mg/dl Aspartate Amino Transf (AST/SGOT) 15 U/L Alanine Aminotransferase (ALT/SGPT) 19 U/L Alkaline Phosphatase 51 U/L Total Protein 5.6 gm/dl Albumin 2.6 gm/dl Globulin 3.0 gm/dl Albumin/Globulin Ratio 0.9 Assessment and Plan 76-year-old female with recent rectal prolapse status post surgery at [facility] about 20 days ago admitted because of bloody stool on March 30 2017 rectal bleeding prior to admission VANITA was done in the ER ER had contacted colorectal surgeon senior talent acquisition specialist at [facility] with advice to be monitored overnight for any active bleeding -Hemorrhoidal bleeding versus bleeding from anastomosis - Hemoglobin on presentation at 11, this morning was 9 - Continue Nothing by mouth - Consult gastroenterology, pending for input - Patient general condition looks good we'll continue follow-up H&H - Continue IV fluid and nothing by mouth - Has counselled "no straining" when her bowel movement, and started stool softener Hypertension: Stable - Continue home meds Hypothyroidism: Stable - Continue Tirosint( patient is intolerant to Synthroid) Chronic pain: Stable - Patient receives pain medications from pain clinic - Continue Neurontin, fentanyl patch DVT prophylaxis: SCDs Avoid chemical anticoagulation in light of bleeding Full code Disposition: Monitor in telemetry We'll continue follow-up H&H, follow-up GI input, surgeon consult if needed Continued [facility] stay due to: multiple IV medications needed Discharge planning: home
[2017-03-31] MEDS: ONDANSETRON INJ 2 MG/ML 2 ML VIAL IV PRN ×2 (11:33→21:47)
[2017-03-31 11:45] VITALS: BP 130/70; PULSE 89; TEMP 36.6; O2SAT 95
[2017-03-31 13:38] LABS: HEMATOCRIT 31.6 % (37-47)
[2017-03-31 15:14] VITALS: BP 127/66; PULSE 69; TEMP 36.7; O2SAT 92
[2017-03-31 19:50] VITALS: BP 116/65; PULSE 78; TEMP 36.8; O2SAT 93
[2017-03-31] MEDS ORDERED: TIROSINT PO SCH (21:00)
[2017-03-31] MEDS: TIROSINT PO SCH (21:00)
[2017-03-31] MEDS: SIMVASTATIN 20 MG TAB PO SCH (21:30)
--- NOTE | 2017-03-31 21:46 | GASTROINTESTINAL CONSULTATION ---
DATE OF CONSULTATION: 03/31/2017 REASON FOR EVALUATION: Rectal bleeding. HISTORY OF PRESENT ILLNESS: The patient is a 76-year-old white female who had surgery by Dr. Jamil at [facility] about 3 weeks ago for rectal prolapse. The patient states that prior to this she had a colonoscopy which did not show any diverticulosis. She has had a previous hysterectomy. She did well until yesterday when she started to have bright red painless bleeding. She had about 10-15 episodes yesterday and presented to the Emergency Room and was admitted, so far today she has had 5-6 bowel movements which were dark red blood mixed with some stool. She has had no abdominal pain, no presyncopal symptoms. No nausea, vomiting, fevers, or chills. She denies chest pain, palpitations or shortness of breath. PAST MEDICAL HISTORY: Remarkable for hyperlipidemia, hypertension, she has had knee joint replacements, she had left parotid malignancy. She has hypothyroidism, some acid reflux, hypertension. MEDICATIONS: Per list. ALLERGIES: BACLOFEN, PREDNISONE, AZELASTINE. FAMILY HISTORY: Noncontributory. SOCIAL HISTORY: The patient is . She is a former smoker. She is retired. REVIEW OF SYSTEMS: Positive for arthritic joint pains and GI bleeding. Remainder is negative. PHYSICAL EXAMINATION: GENERAL: The patient appears awake, alert, in no acute distress. VITAL SIGNS: Blood pressure is 126/64, pulse is 70. Room air oxygen saturation is 94%. LUNGS: Clear. HEART: Showed a normal S1 and S2, regular rate and rhythm without murmurs, rubs, or gallops. ABDOMEN: Showed a low transverse scar. Bowel sounds are normal. There is mild tenderness in the right lower quadrant. RECTAL: Exam showed no external pathology. Digital exam showed some brown stool mixed with maroon colored blood. No masses were appreciated. LABORATORY: Shows a hemoglobin of 11, white count 7.73, platelets are 358,000. BUN 16, creatinine 0.84. IMPRESSION: The patient is having rectal bleeding 3 weeks following rectal prolapse surgery. It is possible that there may be some bleeding at the anastomosis surgically. Other possibilities are to include diverticular bleeding, although she does not recall ever having been told she had diverticulosis following a colonoscopy, also a possibility include hemorrhoids. The patient is currently stable and doing an endoscopic evaluation 3 weeks after surgery may be placing her at higher risk for perforation so hopefully this will stop without further intervention. We will continue to monitor her blood counts and if she continues to have more bleeding through the course of the day today or tomorrow, then will prep her with enemas and schedule her for a flexible sigmoidoscopy tomorrow afternoon if needed. Dr. Lo will be here tomorrow to evaluate her.
[2017-03-31] MEDS: FLURAZEPAM HCL 15 MG CAP PO SCH (21:53)
[2017-03-31 23:32] VITALS: BP 109/68; PULSE 62; TEMP 36.7; O2SAT 91
[2017-04-01] VITALS (11 sets, daily range): BP systolic 96–146; BP diastolic 61–77; PULSE 70–88; TEMP 36.8–37.7; O2SAT 91–96
[2017-04-01] MEDS: CHECK FENTANYL PATCH PLACEMENT SCH ×3 (00:19→16:00)
[2017-04-01] MEDS: SODIUM CHLORIDE 0.9% 1000ML 1,000 ML IV SCH ×2 (04:36→17:18)
[2017-04-01] MEDS: OXYCODONE/ACETAMINOPHEN 5-325 TAB PO PRN (07:10)
[2017-04-01 07:37] LABS: HEMATOCRIT 31.6 % (37-47); MEAN CELL VOLUME 91.9 fL (80-100); MEAN CORPUSCULAR HEMOGLOBIN 29.1 pg (25-34); MEAN CORPUSCULAR HGB CONC 31.6 g/dl (32-36); MEAN PLATELET VOLUME 8.9 fL (7.4-10.4); PLATELET COUNT 325 K/uL (130-400); RED BLOOD COUNT 3.44 M/uL (4.2-5.4); WHITE BLOOD COUNT 6.46 K/uL (4.8-10.8)
[2017-04-01] MEDS: ONDANSETRON INJ 2 MG/ML 2 ML VIAL IV PRN (07:41)
[2017-04-01] MEDS: GABAPENTIN 400 MG CAP PO SCH ×4 (07:44→21:43)
[2017-04-01 08:11] LABS: CREATININE 0.91 mg/dl (0.60-1.20); MAGNESIUM 2.3 mg/dl (1.8-2.4); POTASSIUM 3.4 mmol/L (3.5-5.1)
[2017-04-01 08:45] LABS: CALCIUM 8.6 mg/dl (8.5-10.1)
[2017-04-01] MEDS: PANTOprazole SOD 40 MG TAB PO SCH ×2 (09:00→21:44)
[2017-04-01] MEDS: TRIAMTERENE/HCTZ 37.5/25MG CAP PO SCH (09:00)
[2017-04-01] MEDS: DOCUSATE SODIUM 100 MG CAP PO SCH ×2 (09:00→21:43)
[2017-04-01] MEDS: CITALOPRAM 20 MG TAB PO SCH (09:00)
[2017-04-01] MEDS: CHLORZOXAZONE 500 MG TAB PO SCH ×3 (09:00→18:05)
[2017-04-01] MEDS: POLYETHYLENE (MIRALAX) 17 GM PACK PO SCH (09:00)
[2017-04-01] MEDS: MAGNESIUM CHLORIDE 64MG DELAYED REL TAB PO SCH (09:00)
[2017-04-01] MEDS: FENTANYL 25 MCG/HR TDSY TD SCH (09:20)
[2017-04-01] MEDS: SOD PHOSPHATE/SOD BIPHOSPHATE ENEMA 132 ML BTL PR SCH ×2 (11:06→12:00)
[2017-04-01] MEDS ORDERED: POTASSIUM CHLORIDE 10 MEQ TABCR PO STA (12:39)
[2017-04-01 13:08] LABS: HEMATOCRIT 24.7 % (37-47)
[2017-04-01] MEDS ORDERED: NURSING VERBAL MED ORDER ONE ×4 (13:15→22:30)
[2017-04-01] MEDS ORDERED: LIDOCAINE HCL 2% 2 ML VIAL (20MG/ML) ONE (14:12)
[2017-04-01] MEDS ORDERED: PHENYLEPHRINE HCL INJ 10 MG/ML VIAL ONE (14:12)
[2017-04-01] MEDS ORDERED: PROPOFOL IV EMULSION 10 MG/ML 20 ML VIAL IV ONE (14:12)
[2017-04-01] MEDS ORDERED: EpINEphrine INJ 1MG/ML AMP 1 MG/ML AMP ONE (14:25)
[2017-04-01] MEDS ORDERED: ONDANSETRON INJ 2 MG/ML 2 ML VIAL ONE ×2 (14:30→15:16)
--- NOTE | 2017-04-01 15:12 | Anesthesiology Progress Note ---
Anesthesia Post Op Note Date & Time Apr 01, 2017 at 15:11 Vital Signs Pain Intensity: 0.0 Vital Signs Past 12 Hours Date Time Temp Pulse Resp B/P (MAP) Pulse Ox O2 Delivery O2 Flow Rate FiO2 04/01/17 12:25 37 85 20 103/53 93 Room Air 04/01/17 11:45 88 96/61 (73) 04/01/17 11:16 36.8 70 20 111/64 (80) 95 04/01/17 08:00 Room Air 04/01/17 06:10 75 18 129/77 (94) 95 Room Air 04/01/17 04:05 Room Air 04/01/17 04:00 36.9 70 16 119/70 (86) 91 Room Air Notes Mental Status: alert / awake / arousable, participated in evaluation Pt Amnestic to Procedure: Yes Nausea / Vomiting: adequately controlled Pain: adequately controlled Airway Patency, RR, SpO2: stable & adequate BP & HR: stable & adequate Hydration State: stable & adequate Anesthetic Complications: no major complications apparent Patient was having increasing "dizziness" today with increased BRPBR and low BP after her enema. I did check an H/H before proceeding to the OR which was 06/19 and so she was transfused 1 unit. BP acceptable in the OR without too much pressor support. Bleeding stopped by proceduralist and patient hemodynamically stable on discharge.
[2017-04-01] MEDS ORDERED: FENTANYL CITRATE INJ 50 MCG/1 ML 2 ML VIAL ONE (15:15)
--- NOTE | 2017-04-01 15:26 | GI REPORT ---
Procedure Date: 04/01/2017 1:31 PM Procedure: Colonoscopy Indications: Hematochezia Medicines: Propofol per Anesthesia Complications: No immediate complications. Estimated blood loss: None. Estimated Blood Loss: Estimated blood loss: none. Procedure: Pre-Anesthesia Assessment: - Prior to the procedure, a History and Physical was performed, and patient medications and allergies were reviewed. The patient's tolerance of previous anesthesia was also reviewed. The risks and benefits of the procedure and the sedation options and risks were discussed with the patient. All questions were answered, and informed consent was obtained. Prior Anticoagulants: The patient has taken no previous anticoagulant or antiplatelet agents. ASA Grade Assessment: III - A patient with severe systemic disease. After reviewing the risks and benefits, the patient was deemed in satisfactory condition to undergo the procedure. After I obtained informed consent, the scope was passed under direct vision. Throughout the procedure, the patient's blood pressure, pulse, and oxygen saturations were monitored continuously. The Scope was introduced through the anus and advanced to the transverse colon. The colonoscopy was performed without difficulty. The patient tolerated the procedure well. The quality of the bowel preparation was inadequate. Findings: The perianal and digital rectal examinations were normal. Pertinent negatives include normal sphincter tone, no palpable rectal lesions and no anal lesion or abnormality was detected. A few twenty mm ulcers were found at 3 cm proximal to the anus. Oozing was present. Stigmata of recent bleeding were present. Area was successfully injected with 20 mL of a 1:20,000 solution of epinephrine for hemostasis. For hemostasis, six hemostatic clips were successfully placed (MR conditional). There was no bleeding at the end of the procedure. Clotted blood was found in the sigmoid colon and in the descending colon. possible fistula/abscess opening just above suture lining. No significant pus identified. No blood arising from tract. Impression: - Preparation of the colon was inadequate. - A few ulcers at 3 cm proximal to the anus. Injected. Clips (MR conditional) were placed. - Blood in the sigmoid colon and in the descending colon. - No specimens collected. Recommendation: - [facility]. - Clear liquid diet. - Continue present medications. - Will consider ABX and possible CT pelvis imaging if bleeding does not discontinue or if fever/leucocytosis occurs. MD Burt Cortez MD 04/01/2017 3:26:40 PM This report has been signed electronically. Note Initiated On: 04/01/2017 1:31 PM I attest to the content of the Intraoperative Record and orders documented therein, exceptions below
[2017-04-01] MEDS ORDERED: OPTIRAY 320 IV PRN (16:15)
[2017-04-01] MEDS ORDERED: MoRPHine SULFATE 2 MG/ML CARP IV ONE (16:45)
[2017-04-01] MEDS ORDERED: PIPERACILL/TAZOBAC IV 3.375 GM in DEXTROSE 5% 100ML IV ONE (17:00)
--- NOTE | 2017-04-01 17:39 | Progress Note ---
Subjective Date of Service: Apr 01, 2017. Subjective Pt evaluation today including: conversation w/ patient, physical exam, chart review, lab review, review of studies, conversation w/ b2b sales consultant, review of inpatient medication list Had a sigmoidoscopy today, postop return to withdrawal, reported nausea, no help from Zofran, 3 /10m abd pain Problem List Medical Problems: (1) Dizziness Status: Acute (2) Rectal bleed Status: Acute Review of Systems Constitutional: No fever, No chills, No sweats, No weight loss, No weakness, No fatigue, No problem reported Eyes: No worsening of vision, No eye pain, No redness, No discharge, No diplopia ENT: No hearing loss, No unusual epistaxis, No nasal symptoms, No sore throat, No tinnitus, No dental problems, No trouble swallowing Respiratory: No cough, No sputum, No wheezing, No shortness of breath, No dyspnea on exertion, No dyspnea at rest, No hemoptysis Cardiac: No chest pain, No orthopnea, No PND, No edema, No claudication, No palpitations Abdomen: + pain, + nausea, No vomiting, No diarrhea, No constipation Musculoskeletal: No joint pain, No muscle pain, No swelling, No calf pain Female : No dysuria, No urinary frequency, No hematuria, No incontinence, No abnormal vaginal bleeding, No vaginal discharge Neurologic: No memory loss, No paralysis, No weakness, No numbness/tingling, No vertigo, No balance problems Psychiatric: No depression symptoms, No anhedonism, No anxiety, No insomnia, No substance abuse Heme: No abnormal bleeding/bruising, No clotting problems, No swollen lymph nodes, No night sweats Endo: No fatigue, No excessive thirst, No excessive urination Skin: No rash, No itch, No new/changing skin lesions, No color change, No bleeding Objective Vital Signs Date Time Temp Pulse Resp B/P (MAP) Pulse Ox O2 Delivery O2 Flow Rate FiO2 04/01/17 16:55 37.5 74 18 146/73 (97) 93 04/01/17 16:18 37.3 18 127/74 (91) 96 Room Air 04/01/17 15:30 82 18 154/62 95 Room Air 04/01/17 15:15 79 18 153/68 95 Room Air 04/01/17 15:00 86 16 149/67 95 Room Air 04/01/17 12:25 37 85 20 103/53 93 Room Air 04/01/17 11:45 88 96/61 (73) 04/01/17 11:16 36.8 70 20 111/64 (80) 95 04/01/17 08:00 Room Air 04/01/17 06:10 75 18 129/77 (94) 95 Room Air 04/01/17 04:05 Room Air 04/01/17 04:00 36.9 70 16 119/70 (86) 91 Room Air 04/01/17 00:05 Room Air 03/31/17 23:32 36.7 62 16 109/68 (82) 91 Room Air 03/31/17 20:05 Room Air 03/31/17 19:50 36.8 78 18 116/65 (82) 93 Nasal Cannula 2.0 Physical Exam General Appearance: WD/WN, no apparent distress, + pertinent finding (mild anxious) Eyes: normal inspection, PERRL, EOMI, sclerae normal ENT: normal ENT inspection, hearing grossly normal, pharynx normal Neck: supple, no adenopathy, thyroid normal, no JVD, no carotid bruits, trachea midline Respiratory/Chest: chest non-tender, lungs clear, normal breath sounds, no respiratory distress, no accessory muscle use Cardiovascular: regular rate, rhythm, no edema, no gallop, no JVD, no murmur Abdomen: normal bowel sounds, soft, no organomegaly, no pulsatile mass, + tenderness (mild) Extremities: normal range of motion, non-tender, normal inspection, no pedal edema, no calf tenderness, normal capillary refill, pelvis stable Neurologic/Psychiatric: teller II-XII nml as tested, no motor/sensory deficits, alert, normal mood/affect, oriented x 3 Skin: normal color, warm/dry, no rash Lymphatic: no adenopathy Laboratory Results Last 24 Hours Test 04/01/17 07:20 04/01/17 11:49 04/01/17 13:04 White Blood Count 6.46 K/uL Red Blood Count 3.44 M/uL Hemoglobin 10.0 g/dL 8.0 g/dL Hematocrit 31.6 % 24.7 % Mean Corpuscular Volume 91.9 fL Mean Corpuscular Hemoglobin 29.1 pg Mean Corpuscular Hemoglobin Concent 31.6 g/dl RDW Standard Deviation 47.4 fL RDW Coefficient of Variation 14.2 % Platelet Count 325 K/uL Mean Platelet Volume 8.9 fL Sodium Level 144 mmol/L Potassium Level 3.4 mmol/L Chloride Level 109 mmol/L Carbon Dioxide Level 21 mmol/L Anion Gap 14.0 mmol/L Blood Urea Nitrogen 9 mg/dl Creatinine 0.91 mg/dl Est Creatinine Clear Calc Drug Dose 50.2 ml/min Estimated GFR () 72.0 Estimated GFR (Non- 62.2 BUN/Creatinine Ratio 10.0 Random Glucose 167 mg/dl Calcium Level 8.6 mg/dl Magnesium Level 2.3 mg/dl Bedside Glucose 151 mg/dl Assessment and Plan 76-year-old female with recent rectal prolapse status post surgery at [facility] about 20 days ago admitted because of bloody stool on March 30 2017 A few ulcers at 3 cm proximal to the anus per colonoscopy SP Injected and Clips during colonoscopy on 04/01/2017 Blood in the sigmoid colon and in the descending colon is also on the blood likely from isolation rectal bleeding prior to admission VANITA was done in the ER ER had contacted colorectal surgeon radiation protection technician at [facility] with advice to be monitored overnight for any active bleeding - Hemoglobin on presentation at 11 to 9 in yesterday, today is 8, is getting blood transfusion 2 unit -Okay diet per GI -Talked to GI - Patient general condition looks good we'll continue follow-up H&H - Continue IV fluid - Has counselled "no straining" when her bowel movement, and started stool softener - GI service walk communication with surgeon in [facility], will follow-up Results of colonoscopy on 04/01/2017 report from GI Preparation of the colon was inadequate. - A few ulcers at 3 cm proximal to the anus. Injected. Clips (MR conditional) were placed. - Blood in the sigmoid colon and in the descending colon. - No specimens collected. Recommendation: - [facility]. - Clear liquid diet. - Continue present medications. - Will consider ABX and possible CT pelvis imaging if bleeding does not discontinue or if fever/leucocytosis occurs. Hypertension: Stable - Continue home meds Hypothyroidism: Stable - Continue Tirosint( patient is intolerant to Synthroid) Chronic pain: Stable - Patient receives pain medications from pain clinic - Continue Neurontin, fentanyl patch DVT prophylaxis: SCDs Avoid chemical anticoagulation in light of bleeding Full code Disposition: Monitor in telemetry We'll continue follow-up H&H, follow-up GI input GI prophylaxis is covered DVT prophylaxis with SCD, no heparin per duct because of GI bleeding Continued [facility] stay due to: multiple IV medications needed Discharge planning: home
[2017-04-01] MEDS ORDERED: PROMETHAZINE HCL INJ 25 MG in SODIUM CHLORIDE 0.9% 50ML 50 ML IV ONE (18:00)
[2017-04-01] MEDS: TIROSINT PO SCH (21:00)
[2017-04-01] MEDS: SIMVASTATIN 20 MG TAB PO SCH (21:49)
[2017-04-02] VITALS (13 sets, daily range): BP systolic 105–169; BP diastolic 63–83; PULSE 59–80; TEMP 36.7–37.3; O2SAT 92–97
[2017-04-02] MEDS: FLURAZEPAM HCL 15 MG CAP PO SCH ×2 (00:50→22:14)
[2017-04-02] MEDS: CHLORZOXAZONE 500 MG TAB PO SCH ×5 (00:50→21:27)
[2017-04-02] MEDS: SODIUM CHLORIDE 0.9% 1000ML 1,000 ML IV SCH ×2 (00:51→08:24)
[2017-04-02] MEDS: PIPERACILL/TAZOBAC IV 3.375 GM in DEXTROSE 5% 100ML 100 ML IV SCH ×3 (00:51→20:27)
--- NOTE | 2017-04-02 07:01 | DIAGNOSTIC IMAGING REPORT ---
ABDOMEN AND PELVIS CT WITH IV AND ORAL CONTRAST CT DOSE: 525.88 mGy.cm HISTORY: Pain recent rect prolapse w blading; r/o rectal/perirectal abscess TECHNIQUE: Multiaxial CT images of the abdomen and pelvis were performed following the use of intravenous and oral contrast. COMPARISON STUDY: None. FINDINGS: Minimal basilar atelectatic change. Liver spleen and pancreas are unremarkable. Gallbladder slightly distended. Kidneys is uniformly. Partial fatty replacement of the pancreas. Bowel pattern is considered nonobstructive. No significant abdominal adenopathy. Evaluation of pelvis shows moderate infiltrative change of the perirectal fat. Possibility of a small short segment fistula is identified anterior to the rectum. Components of this relate to postoperative change given patient's history although prior imaging studies are not available for comparison. A major drainable abscess or collection is not appreciated. There are no obstructive characteristics. IMPRESSION: 1. Postoperative changes within the rectum and perirectal region. 2. Moderate infiltrative change of the perirectal fat, components of which possibly a postoperative. 3. Linear gas pocket anterior to the rectum suggesting the possibility of a small fistula. 4. No evidence for drainable abscess or collection. Electronically signed by: Leonardo Roberts M.D. 04/02/2017 6:59 AM Dictated Date/Time: 04/02/2017 6:56 AM
[2017-04-02] MEDS: GABAPENTIN 400 MG CAP PO SCH ×4 (08:16→21:27)
[2017-04-02] MEDS: MAGNESIUM CHLORIDE 64MG DELAYED REL TAB PO SCH ×2 (08:16→21:28)
[2017-04-02] MEDS: CITALOPRAM 20 MG TAB PO SCH (08:17)
[2017-04-02] MEDS: PANTOprazole SOD 40 MG TAB PO SCH ×2 (08:17→21:28)
[2017-04-02] MEDS: DOCUSATE SODIUM 100 MG CAP PO SCH ×2 (08:17→21:27)
[2017-04-02] MEDS: TRIAMTERENE/HCTZ 37.5/25MG CAP PO SCH (08:18)
[2017-04-02] MEDS: POLYETHYLENE (MIRALAX) 17 GM PACK PO SCH (08:19)
[2017-04-02] MEDS: ONDANSETRON INJ 2 MG/ML 2 ML VIAL IV PRN ×2 (08:19→19:05)
[2017-04-02 08:20] LABS: BASO % 0.2 %; BASO ABS # 0.01 K/uL (0-0.2); EOS % 4.9 %; HEMATOCRIT 23.6 % (37-47); IG% 0.5 %; LYMPH % 37.2 %; LYMPH ABS # 2.22 K/uL (1.2-3.4); MEAN CELL VOLUME 88.1 fL (80-100); MEAN CORPUSCULAR HEMOGLOBIN 29.1 pg (25-34); MEAN CORPUSCULAR HGB CONC 33.1 g/dl (32-36); MEAN PLATELET VOLUME 9.1 fL (7.4-10.4); MONO % 11.9 %; NEUT % 45.3 %; PLATELET COUNT 226 K/uL (130-400); RED BLOOD COUNT 2.68 M/uL (4.2-5.4); WHITE BLOOD COUNT 5.97 K/uL (4.8-10.8)
[2017-04-02] MEDS: CHECK FENTANYL PATCH PLACEMENT SCH ×4 (08:28→23:53)
[2017-04-02 08:58] LABS: BUN/CREATININE RATIO 8.8 (10-20); CREATININE 0.77 mg/dl (0.60-1.20); MAGNESIUM 2.2 mg/dl (1.8-2.4); POTASSIUM 3.5 mmol/L (3.5-5.1)
[2017-04-02 09:06] LABS: COMPLETE YES; POLYCHROMASIA 1+
[2017-04-02 09:24] LABS: CALCIUM 7.4 mg/dl (8.5-10.1)
[2017-04-02] MEDS: OXYCODONE/ACETAMINOPHEN 5-325 TAB PO PRN ×2 (09:31→22:59)
[2017-04-02] MEDS ORDERED: PIPERACILL/TAZOBAC CONSULT ACTIVE PRN (10:00)
[2017-04-02] MEDS ORDERED: D5W AND 1/2NSS + 20MEQ KCL 1,000 ML IV SCH (14:30)
--- NOTE | 2017-04-02 14:51 | Progress Note ---
Subjective Date of Service: Apr 02, 2017. Subjective Pt evaluation today including: conversation w/ patient, physical exam, chart review, lab review, review of studies, conversation w/ talent development consultant, review of inpatient medication list Report doing okay, no more nausea vomiting, tolerate diet, denied dizziness, no more blood stool Problem List Medical Problems: (1) Dizziness Status: Acute (2) Rectal bleed Status: Acute Review of Systems Constitutional: + fatigue, No fever, No chills, No sweats, No weight loss, No weakness, No problem reported Eyes: No worsening of vision, No eye pain, No redness, No discharge, No diplopia ENT: No hearing loss, No unusual epistaxis, No nasal symptoms, No sore throat, No tinnitus, No dental problems, No trouble swallowing Respiratory: No cough, No sputum, No wheezing, No shortness of breath, No dyspnea on exertion, No dyspnea at rest, No hemoptysis Cardiac: No chest pain, No orthopnea, No PND, No edema, No claudication, No palpitations Abdomen: No pain, No nausea, No vomiting, No diarrhea, No constipation Musculoskeletal: No joint pain, No muscle pain, No swelling, No calf pain Female : No dysuria, No urinary frequency, No hematuria, No incontinence, No abnormal vaginal bleeding, No vaginal discharge Neurologic: No memory loss, No paralysis, No weakness, No numbness/tingling, No vertigo, No balance problems Psychiatric: No depression symptoms, No anhedonism, No anxiety, No insomnia, No substance abuse Heme: No abnormal bleeding/bruising, No clotting problems, No swollen lymph nodes, No night sweats Endo: No fatigue, No excessive thirst, No excessive urination Skin: No rash, No itch, No new/changing skin lesions, No color change, No bleeding Objective Vital Signs Date Time Temp Pulse Resp B/P (MAP) Pulse Ox O2 Delivery O2 Flow Rate FiO2 04/02/17 14:00 37.0 73 20 129/69 04/02/17 12:00 Room Air 04/02/17 11:30 36.8 67 16 145/73 (97) 97 Room Air 04/02/17 08:12 Room Air 04/02/17 07:28 36.9 80 16 133/69 (90) 93 Room Air 04/02/17 04:05 Room Air 6/7/17 04:00 37.2 73 18 105/63 (77) 92 Room Air 73 73 04/02/17 00:05 Room Air 04/01/17 23:23 37.1 73 18 109/64 (79) 94 Room Air 04/01/17 20:00 95 Room Air 04/01/17 19:33 37.7 78 18 115/66 (82) 93 Room Air 78 04/01/17 17:38 36.9 76 18 118/70 (86) 92 Room Air 04/01/17 16:55 37.5 74 18 146/73 (97) 93 04/01/17 16:18 37.3 18 127/74 (91) 96 Room Air 04/01/17 16:00 95 Room Air 04/01/17 15:30 82 18 154/62 95 Room Air 04/01/17 15:15 79 18 153/68 95 Room Air 04/01/17 15:00 86 16 149/67 95 Room Air Physical Exam General Appearance: WD/WN, no apparent distress Eyes: normal inspection, PERRL, EOMI, sclerae normal ENT: normal ENT inspection, hearing grossly normal, pharynx normal Neck: supple, no adenopathy, thyroid normal, no JVD, no carotid bruits, trachea midline Respiratory/Chest: chest non-tender, lungs clear, normal breath sounds, no respiratory distress, no accessory muscle use Cardiovascular: regular rate, rhythm, no edema, no gallop, no JVD, no murmur Abdomen: normal bowel sounds, non tender, soft, no organomegaly, no pulsatile mass Extremities: normal range of motion, non-tender, normal inspection, no pedal edema, no calf tenderness, normal capillary refill, pelvis stable 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/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 as tested, no motor/sensory deficits, alert, normal mood/affect, oriented x 3 Skin: normal color, warm/dry, no rash Lymphatic: no adenopathy Laboratory Results Last 24 Hours Test 04/02/17 07:28 White Blood Count 5.97 K/uL Red Blood Count 2.68 M/uL Hemoglobin 7.8 g/dL Hematocrit 23.6 % Mean Corpuscular Volume 88.1 fL Mean Corpuscular Hemoglobin 29.1 pg Mean Corpuscular Hemoglobin Concent 33.1 g/dl Platelet Count 226 K/uL Mean Platelet Volume 9.1 fL Neutrophils (%) (Auto) 45.3 % Lymphocytes (%) (Auto) 37.2 % Monocytes (%) (Auto) 11.9 % Eosinophils (%) (Auto) 4.9 % Basophils (%) (Auto) 0.2 % Neutrophils # (Auto) 2.71 K/uL Lymphocytes # (Auto) 2.22 K/uL Monocytes # (Auto) 0.71 K/uL Eosinophils # (Auto) 0.29 K/uL Basophils # (Auto) 0.01 K/uL RDW Standard Deviation 54.8 fL RDW Coefficient of Variation 17.0 % Immature Granulocyte % (Auto) 0.5 % Immature Granulocyte # (Auto) 0.03 K/uL Nucleated RBC Absolute Count (auto) 0.03 K/uL Nucleated Red Blood Cells % 0.5 % Polychromasia 1+ Sodium Level 146 mmol/L Potassium Level 3.5 mmol/L Chloride Level 113 mmol/L Carbon Dioxide Level 24 mmol/L Anion Gap 9.0 mmol/L Blood Urea Nitrogen 7 mg/dl Creatinine 0.77 mg/dl Est Creatinine Clear Calc Drug Dose 59.7 ml/min Estimated GFR () 88.2 Estimated GFR (Non- 76.1 BUN/Creatinine Ratio 8.8 Random Glucose 101 mg/dl Calcium Level 7.4 mg/dl Magnesium Level 2.2 mg/dl Assessment and Plan 76-year-old female with recent rectal prolapse status post surgery at [facility] about 20 days ago admitted because of bloody stool on March 30 2017 A few ulcers at 3 cm proximal to the anus per colonoscopy SP Injected and Clips during colonoscopy on 04/01/2017 Blood in the sigmoid colon and in the descending colon is also on the blood likely from isolation rectal bleeding prior to admission VANITA was done in the ER ER had contacted colorectal surgeon pest control worker at [facility] with advice to be monitored overnight for any active bleeding Stable - Hemoglobin on presentation at 11 to 9 , 8 today is 7.8, is getting blood transfusion 2 unit, patient has normal bloody stool -Talked to GI, will follow-up -Discontinue IV fluid - Has counselled "no straining" when her bowel movement, and started stool softener - GI service walk communication with surgeon in [facility], will follow-up Results of colonoscopy on 04/01/2017 report from GI Preparation of the colon was inadequate. - A few ulcers at 3 cm proximal to the anus. Injected. Clips (MR conditional) were placed. - Blood in the sigmoid colon and in the descending colon. - No specimens collected. Recommendation: - [facility]. - Clear liquid diet. - Continue present medications. - Will consider ABX and possible CT pelvis imaging if bleeding does not discontinue or if fever/leucocytosis occurs. Hypertension: Stable - Continue home meds Hypothyroidism: Stable - Continue Tirosint( patient is intolerant to Synthroid) Chronic pain: Stable - Patient receives pain medications from pain clinic - Continue Neurontin, fentanyl patch DVT prophylaxis: SCDs Avoid chemical anticoagulation in light of bleeding Full code Disposition: Monitor in telemetry We'll continue follow-up H&H, follow-up GI input, GI prophylaxis is covered DVT prophylaxis with SCD, no heparin per duct because of GI bleeding Continued [facility] stay due to: multiple IV medications needed Discharge planning: home
--- NOTE | 2017-04-02 18:54 | GASTROENTEROLOGY PROGRESS NOTE ---
DATE: 04/02/2017 SUBJECTIVE: Mrs. Andrews did well overnight. I did speak with Dr. Mendoza earlier regarding a slight decrease in her hemoglobin from yesterday. According to the patient, last evening, throughout the night and today although she has had some sizable bowel movements she actually reports them as light to medium brown without evidence of bleeding. She actually feels better than she did yesterday without significant abdominal discomfort. Her vital signs today blood pressure 155/73, pulse 65, respirations 18, pulse ox 95%. She is afebrile at 36.8. REVIEW OF SYSTEMS: Otherwise noncontributory based on 14-point exam. CURRENT MEDICATIONS: Include piperacillin started yesterday, fentanyl, clonazepam, simvastatin, levothyroxine, chlorzoxazone, Celexa, gabapentin, pantoprazole Dyazide, Colace. LABORATORY STUDIES: Today, hemoglobin 7.8, yesterday at 1:00 p.m. it was 8.0, earlier on April 01 it was 10.0. White count normal at 5.9, platelets 226,000. Serum chemistry, BUN and creatinine remain normal at 9 and 7 and 0.7. PHYSICAL EXAMINATION: GENERAL: The patient is awake, alert and oriented x3, resting comfortably in bed. LUNGS: Clear to auscultation. HEART: Normal S1, S2. ABDOMEN: Soft, without rebound, guarding or tenderness. EXTREMITIES: Without clubbing, cyanosis or edema. RECTAL: Deferred at this time. IMPRESSION: The patient with anastomosis with some ulceration and presumed source of bleeding distally at approximately 3 cm from the anal verge. No evidence for infection. CT scan did not reveal evidence of an obvious abscess or collection. There are no reports of free air, although there may be a small fistulous tract just in the vicinity of the anastomosis. This does not seem to go to any one particular area. I made the following recommendations. Although her hemoglobin is slightly decreased from yesterday, there has been no overt GI bleeding. This may reflect equilibration from yesterday's bleeding events. At this point, would continue to watch serial hemoglobins no more than q. 12 hours and watch stool output as this will represent the degree of activity. If there is a suggestion of bleeding then I would recommend a tagged red cell scan initially to see if a region of the GI tract can be identified. At some point if this persists a formal colon prep with full colonoscopy may be necessary to exclude a more proximal bleeding source, in addition, upper endoscopy may be prudent. Continue PPI therapy. Can discontinue antibiotics therapies at this time. The case was discussed with Dr. Jamil prior to seeing the patient today regarding the results of the CT scan. All questions answered for the patient. LOLI
[2017-04-02] MEDS: BOOST BREEZE NUTRITION DRINK 1 BOX PO SCH (19:05)
[2017-04-02] MEDS: TIROSINT PO SCH (21:28)
[2017-04-02] MEDS: SIMVASTATIN 20 MG TAB PO SCH (21:29)
[2017-04-03] VITALS (9 sets, daily range): BP systolic 118–163; BP diastolic 65–78; PULSE 52–73; TEMP 36.5–37.1; O2SAT 94–97
[2017-04-03] MEDS: PIPERACILL/TAZOBAC IV 3.375 GM in DEXTROSE 5% 100ML 100 ML IV SCH ×2 (04:00→12:51)
[2017-04-03 05:56] LABS: BASO % 0.2 %; BASO ABS # 0.01 K/uL (0-0.2); COMPLETE YES; EOS % 8.6 %; HEMATOCRIT 31.5 % (37-47); IG% 0.5 %; LYMPH % 35.9 %; LYMPH ABS # 2.22 K/uL (1.2-3.4); MEAN CELL VOLUME 87.3 fL (80-100); MEAN CORPUSCULAR HEMOGLOBIN 28.5 pg (25-34); MEAN CORPUSCULAR HGB CONC 32.7 g/dl (32-36); MEAN PLATELET VOLUME 9.3 fL (7.4-10.4); MONO % 11.5 %; NEUT % 43.3 %; PLATELET COUNT 183 K/uL (130-400); RED BLOOD COUNT 3.61 M/uL (4.2-5.4); WHITE BLOOD COUNT 6.19 K/uL (4.8-10.8)
[2017-04-03 06:32] LABS: BUN/CREATININE RATIO 5.1 (10-20); CALCIUM 7.6 mg/dl (8.5-10.1); CREATININE 0.67 mg/dl (0.60-1.20); POTASSIUM 3.1 mmol/L (3.5-5.1)
[2017-04-03] MEDS ORDERED: POTASSIUM CHLR 20 MEQ / WTR 20 MEQ in PREMIXED WATER 100 ML IV STA (07:24)
[2017-04-03] MEDS: POTASSIUM CHLR 10MEQ / WTR IV SCH ×2 (07:46→10:10)
[2017-04-03] MEDS: CHECK FENTANYL PATCH PLACEMENT SCH ×3 (07:47→23:22)
[2017-04-03] MEDS: GABAPENTIN 400 MG CAP PO SCH ×4 (07:58→21:04)
[2017-04-03] MEDS: TRIAMTERENE/HCTZ 37.5/25MG CAP PO SCH (07:58)
[2017-04-03] MEDS: PANTOprazole SOD 40 MG TAB PO SCH ×2 (07:59→21:04)
[2017-04-03] MEDS: DOCUSATE SODIUM 100 MG CAP PO SCH ×2 (07:59→21:00)
[2017-04-03] MEDS: CITALOPRAM 20 MG TAB PO SCH (07:59)
[2017-04-03] MEDS ORDERED: POTASSIUM CHLORIDE 10 MEQ TABCR PO ONE (08:00)
[2017-04-03] MEDS: BOOST BREEZE NUTRITION DRINK 1 BOX PO SCH ×2 (08:02→17:05)
[2017-04-03] MEDS: CHLORZOXAZONE 500 MG TAB PO SCH ×4 (08:02→22:26)
[2017-04-03] MEDS: POLYETHYLENE (MIRALAX) 17 GM PACK PO SCH (09:00)
[2017-04-03] MEDS: MAGNESIUM CHLORIDE 64MG DELAYED REL TAB PO SCH ×2 (09:27→21:05)
[2017-04-03] MEDS: OXYCODONE/ACETAMINOPHEN 5-325 TAB PO PRN ×2 (09:32→23:21)
[2017-04-03] MEDS ORDERED: NURSING VERBAL MED ORDER ONE ×2 (16:15→20:00)
[2017-04-03] MEDS: ONDANSETRON INJ 2 MG/ML 2 ML VIAL IV PRN ×2 (16:18→22:24)
--- NOTE | 2017-04-03 18:01 | Progress Note ---
Subjective Date of Service: Apr 03, 2017. Subjective Pt evaluation today including: conversation w/ patient, physical exam, chart review, lab review, review of studies, conversation w/ cancer program consultant, review of inpatient medication list Sitting in bed, up and walk in room, tolerate diet, no dizziness or chest pain, no more bloody stool Problem List Medical Problems: (1) Dizziness Status: Acute (2) Rectal bleed Status: Acute Review of Systems Constitutional: No fever, No chills, No sweats, No weight loss, No weakness, No fatigue, No problem reported Eyes: No worsening of vision, No eye pain, No redness, No discharge, No diplopia ENT: No hearing loss, No unusual epistaxis, No nasal symptoms, No sore throat, No tinnitus, No dental problems, No trouble swallowing Respiratory: No cough, No sputum, No wheezing, No shortness of breath, No dyspnea on exertion, No dyspnea at rest, No hemoptysis Cardiac: No chest pain, No orthopnea, No PND, No edema, No claudication, No palpitations Abdomen: No pain, No nausea, No vomiting, No diarrhea, No constipation Musculoskeletal: No joint pain, No muscle pain, No swelling, No calf pain Female : No dysuria, No urinary frequency, No hematuria, No incontinence, No abnormal vaginal bleeding, No vaginal discharge Neurologic: No memory loss, No paralysis, No weakness, No numbness/tingling, No vertigo, No balance problems Psychiatric: No depression symptoms, No anhedonism, No anxiety, No insomnia, No substance abuse Heme: No abnormal bleeding/bruising, No clotting problems, No swollen lymph nodes, No night sweats Endo: No fatigue, No excessive thirst, No excessive urination Skin: No rash, No itch, No new/changing skin lesions, No color change, No bleeding Objective Vital Signs Date Time Temp Pulse Resp B/P (MAP) Pulse Ox O2 Delivery O2 Flow Rate FiO2 04/03/17 14:58 36.5 55 18 124/70 (88) 97 Room Air 04/03/17 12:00 Room Air 04/03/17 11:39 36.6 52 18 155/78 (103) 94 Room Air 04/03/17 08:00 94 Room Air 2.0 04/03/17 07:30 37.0 58 18 151/69 (96) 94 Room Air 04/03/17 04:05 Room Air 04/03/17 03:33 37.1 64 18 118/65 (82) 94 Room Air 04/03/17 00:56 Room Air 04/02/17 20:00 95 Room Air 04/02/17 19:23 36.9 63 16 158/80 (106) 94 Room Air 04/02/17 18:40 36.8 64 16 133/74 94 Physical Exam General Appearance: WD/WN, no apparent distress Eyes: normal inspection, PERRL, EOMI, sclerae normal ENT: normal ENT inspection, hearing grossly normal, pharynx normal Neck: supple, no adenopathy, thyroid normal, no JVD, no carotid bruits, trachea midline Respiratory/Chest: chest non-tender, lungs clear, normal breath sounds, no respiratory distress, no accessory muscle use Cardiovascular: regular rate, rhythm, no edema, no gallop, no JVD, no murmur Abdomen: normal bowel sounds, non tender, soft, no organomegaly, no pulsatile mass Extremities: normal range of motion, non-tender, normal inspection, no pedal edema, no calf tenderness, normal capillary refill, pelvis stable Neurologic/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: 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 as tested, no motor/sensory deficits, alert, normal mood/affect, oriented x 3 Skin: normal color, warm/dry, no rash Lymphatic: no adenopathy Laboratory Results Last 24 Hours Test 04/03/17 05:19 White Blood Count 6.19 K/uL Red Blood Count 3.61 M/uL Hemoglobin 10.3 g/dL Hematocrit 31.5 % Mean Corpuscular Volume 87.3 fL Mean Corpuscular Hemoglobin 28.5 pg Mean Corpuscular Hemoglobin Concent 32.7 g/dl Platelet Count 183 K/uL Mean Platelet Volume 9.3 fL Neutrophils (%) (Auto) 43.3 % Lymphocytes (%) (Auto) 35.9 % Monocytes (%) (Auto) 11.5 % Eosinophils (%) (Auto) 8.6 % Basophils (%) (Auto) 0.2 % Neutrophils # (Auto) 2.69 K/uL Lymphocytes # (Auto) 2.22 K/uL Monocytes # (Auto) 0.71 K/uL Eosinophils # (Auto) 0.53 K/uL Basophils # (Auto) 0.01 K/uL RDW Standard Deviation 50.2 fL RDW Coefficient of Variation 15.8 % Immature Granulocyte % (Auto) 0.5 % Immature Granulocyte # (Auto) 0.03 K/uL Sodium Level 148 mmol/L Potassium Level 3.1 mmol/L Chloride Level 111 mmol/L Carbon Dioxide Level 29 mmol/L Anion Gap 8.0 mmol/L Blood Urea Nitrogen 3 mg/dl Creatinine 0.67 mg/dl Est Creatinine Clear Calc Drug Dose 68.7 ml/min Estimated GFR () 100.4 Estimated GFR (Non- 86.6 BUN/Creatinine Ratio 5.1 Random Glucose 90 mg/dl Calcium Level 7.6 mg/dl Total Bilirubin 0.3 mg/dl Direct Bilirubin 0.1 mg/dl Aspartate Amino Transf (AST/SGOT) 15 U/L Alanine Aminotransferase (ALT/SGPT) 15 U/L Alkaline Phosphatase 42 U/L Total Protein 5.3 gm/dl Albumin 2.6 gm/dl Assessment and Plan 76-year-old female with recent rectal prolapse status post surgery at [facility] about 20 days ago admitted because of bloody stool on March 30 2017 Rectal bleeding with A few ulcers at 3 cm proximal to the anus per colonoscopy SP Injected and Clips during colonoscopy on 04/01/2017 Blood in the sigmoid colon and in the descending colon is also on the blood likely from isolation rectal bleeding prior to admission VANITA was done in the ER ER had contacted colorectal surgeon solution sales senior executive at [facility] with advice to be monitored overnight for any active bleeding Results of colonoscopy on 04/01/2017 report from GI Preparation of the colon was inadequate. - A few ulcers at 3 cm proximal to the anus. Injected. Clips (MR conditional) were placed. - Blood in the sigmoid colon and in the descending colon. - No specimens collected. Recommendation: - [facility]. - Clear liquid diet. - Continue present medications. - Will consider ABX and possible CT pelvis imaging if bleeding does not discontinue or if fever/leucocytosis occurs. Input appreciated , continue follow-up H&H , if continue bleeding then would recommend a tagged red cell scan initially to see if a region of the GI tract can be identified. At some point if this persists a formal colon prep with full colonoscopy may be necessary to exclude a more proximal bleeding source, I'll may be need EGD , Continue PPI therapy. Antibiotic discontinued Hypertension: Stable - Continue home meds Hypothyroidism: Stable - Continue Tirosint( patient is intolerant to Synthroid) Chronic pain: Stable - Patient receives pain medications from pain clinic - Continue Neurontin, fentanyl patch DVT prophylaxis: SCDs Avoid chemical anticoagulation in light of bleeding Full code Disposition: Monitor in telemetry Increase activities, possible discharge tomorrow GI prophylaxis is covered DVT prophylaxis with SCD, no heparin per duct because of GI bleeding Continued [facility] stay due to: home environment unsafe for pt Discharge planning: home
[2017-04-03 19:54] LABS: BUN/CREATININE RATIO 4.4 (10-20); CALCIUM 8.1 mg/dl (8.5-10.1); CREATININE 0.73 mg/dl (0.60-1.20); POTASSIUM 3.1 mmol/L (3.5-5.1)
[2017-04-03] MEDS ORDERED: CALCIUM CARBONATE 500 MG CHEWABLE PO ONE (21:00)
[2017-04-03] MEDS: SIMVASTATIN 20 MG TAB PO SCH (21:06)
[2017-04-03] MEDS: TIROSINT PO SCH (21:06)
[2017-04-03] MEDS: FLURAZEPAM HCL 15 MG CAP PO SCH (22:25)
[2017-04-04] VITALS: O2SAT 97
[2017-04-04 04:00] VITALS: O2SAT 97
[2017-04-04 04:07] VITALS: BP 123/70; PULSE 66; TEMP 37; O2SAT 94
[2017-04-04 06:46] LABS: BASO % 0.2 %; BASO ABS # 0.01 K/uL (0-0.2); COMPLETE YES; EOS % 14.6 %; HEMATOCRIT 33.8 % (37-47); IG% 0.2 %; LYMPH % 37.2 %; MEAN CELL VOLUME 88.3 fL (80-100); MEAN CORPUSCULAR HEMOGLOBIN 27.9 pg (25-34); MEAN CORPUSCULAR HGB CONC 31.7 g/dl (32-36); MONO % 11.1 %; NEUT % 36.7 %; PLATELET COUNT 226 K/uL (130-400); RED BLOOD COUNT 3.83 M/uL (4.2-5.4); WHITE BLOOD COUNT 6.46 K/uL (4.8-10.8)
[2017-04-04 07:13] LABS: BUN/CREATININE RATIO 3.6 (10-20); CREATININE 0.73 mg/dl (0.60-1.20); MAGNESIUM 2.2 mg/dl (1.8-2.4); POTASSIUM 3.4 mmol/L (3.5-5.1)
[2017-04-04 07:26] VITALS: BP 137/71; PULSE 61; TEMP 36.8; O2SAT 99
--- NOTE | 2017-04-04 07:39 | GASTROENTEROLOGY PROGRESS NOTE ---
DATE: 04/03/2017 The patient responded appropriately to transfusions. She received 2 units and increased her hemoglobin from 7.8 to 10.3. The patient describes that she has not had any bleeding since shortly after the procedure which is greater than 24 hours. She has had some loose stools. She has no significant abdominal pain and her diet has been advanced and would like to get to a full liquid diet. VITAL SIGNS: Today, blood pressure is 124/70, respirations 18, pulse ox 97% on room air, heart rate 55, afebrile at 36.5. REVIEW OF SYSTEMS: Otherwise noncontributory based on 14-point exam. PHYSICAL EXAMINATION HEART: Normal S1, S2. LUNGS: Clear to auscultation. ABDOMEN: Soft, mildly distended without rebound or guarding. There is no significant tenderness. EXTREMITIES: Without clubbing, cyanosis or edema. RECTAL: Deferred. IMPRESSION: I made the following recommendations: Would continue to monitor hemoglobin perhaps once weekly to ensure that her hemoglobin is stable and begins to return toward baseline. At the present time, there is no evidence for active bleeding. There is no evidence for infection. The diet can be advanced to a low-residue diet as tolerated. If all continues to do well, then she can be discharged from a GI standpoint and asked that she follow with Dr. Jamil in 2-3 weeks in colorectal surgery clinic at [facility]. Her white count today is 6.1, BUN and creatinine are 3 and 0.73. She is hypokalemic and this should be replaced and monitored as an outpatient as well. All questions answered. Thank you for allowing me to participate in this patient's care.
--- NOTE | 2017-04-04 08:07 | Clinical Documentation Query ---
CLINICAL DOCUMENTATION QUERY Dr. CHRISTENSEN, In your clinical opinion is this patient being managed for: ( ) Acute blood loss anemia due to bleeding ulcers proximal to anus ( ) Other explanation of clinical findings (Please Explain) ( ) Unable to determine (Please Define) ( ) Need to Discuss ( ) Not Agree The medical record reflects the following clinical findings, treatment, and risk factors. Clinical Indicators: 76 yo female presenting with rectal bleed following recent rectal prolapse surgery. Initial Hgb 11.0, Hct 35.8, which dropped to 7.8/23.6. Treatment:IV fluids, GI consult, colonoscopy with injection and clipping of ulcers, serial H/H, 3U PRBC Risk Factors: recent rectal prolapse surgery with bleeding ulcer Please clarify and document your clinical opinion in the progress notes and discharge summary. Terms such as "probable", "suspected", "likely", "questionable", "possible", or "still to be ruled out" are acceptable. IF IN AGREEMENT, YOU MUST DOCUMENT ABOVE DIAGNOSTIC STATEMENT IN DAILY PROGRESS NOTES AND DISCHARGE SUMMARY. This document is not part of the patient's record. Thank You, Helena Farias, RN [phone]
--- NOTE | 2017-04-04 08:25 | Discharge Instructions ---
Discharge Instructions Date of Service Apr 04, 2017. Admission Reason for Admission: Rectal Bleeding Discharge Discharge Diagnosis / Problem: lower GI bleeding Discharge Goals Goal(s): Decrease discomfort, Improve function, Increase independence, Improve disease control, Improve nutritional status, Learn about illness, Diagnostic testing, Therapeutic intervention, Prevent Disease Progression, Specific goals Activity Recommendations Activity Limitations: resume your previous activity . Instructions / Follow-Up Instructions / Follow-Up you have Rectal bleeding with A few ulcers at 3 cm proximal to the anus per colonoscopy SP Injected and Clips during colonoscopy on 04/01/2017 low residual diet you have recent rectal prolapse status post surgery at [facility], you need to be seen in 2-3 week follow up GI in 3-4 weeks no new medicine - you need to have labs of bmp, mag, CBC checked on friday because of your sodium is mild elevated and potassium is mild low, and report the pcp and further follow up - you need to follow up with your primary care physician in 1 week, - take medication as instructed, never overdose or any misuse, or take with alcohol, because misuse of medicine may cause organ damage or , call your primary care physician if have questions of medicaitons. - call your primary care physician OR go to local emergency room if has any rectal bleeding, fever/chill, chest pain, shortness of breathing, nausea/ vomiting/abdominal pain, facial droop/slurry speech/local weakness, or if has any questions. - fall precaution - diet as instructed - you need to follow up with your subspecialist - you should understand that it is important to follow up the above instruction , and "not following the above instruction" may cause delayed or missed care of your medical conditions which may cause permanent organ damage and even . Current Hospital Diet Patient's current hospital diet: Full Liquid Diet Discharge Diet Recommended Diet: Regular Diet (low residual diet) Procedures Procedures Performed: COLONOSCOPY Pending Studies Studies pending at discharge: no Medical Emergencies . Who to Call and When: Medical Emergencies: If at any time you feel your situation is an emergency, please call 911 immediately. . Non-Emergent Contact Non-Emergency issues call your: Primary Care Provider, Box Machine Operator, Surgeon (in [facility] . . "Provider Documentation" section prepared by Yevgeniy Mendoza. . VTE Core Measure Inpt VTE Proph given/why not?: SCD's, Contraindicated
[2017-04-04] MEDS ORDERED: POTASSIUM CHLORIDE 10 MEQ TABCR PO ONE (08:30)
[2017-04-04] MEDS: ONDANSETRON INJ 2 MG/ML 2 ML VIAL IV PRN (08:54)
[2017-04-04] MEDS: CITALOPRAM 20 MG TAB PO SCH (08:54)
[2017-04-04] MEDS: POLYETHYLENE (MIRALAX) 17 GM PACK PO SCH (08:57)
[2017-04-04] MEDS: TRIAMTERENE/HCTZ 37.5/25MG CAP PO SCH (08:57)
[2017-04-04] MEDS: DOCUSATE SODIUM 100 MG CAP PO SCH (08:57)
[2017-04-04] MEDS: CHLORZOXAZONE 500 MG TAB PO SCH ×2 (08:57→13:14)
[2017-04-04] MEDS: GABAPENTIN 400 MG CAP PO SCH ×2 (08:57→12:57)
[2017-04-04] MEDS: CHECK FENTANYL PATCH PLACEMENT SCH (08:58)
[2017-04-04] MEDS: PANTOprazole SOD 40 MG TAB PO SCH (08:59)
[2017-04-04] MEDS: OXYCODONE/ACETAMINOPHEN 5-325 TAB PO PRN (08:59)
[2017-04-04] MEDS: BOOST BREEZE NUTRITION DRINK 1 BOX PO SCH (08:59)
[2017-04-04] MEDS: MAGNESIUM CHLORIDE 64MG DELAYED REL TAB PO SCH (09:00)
[2017-04-04] MEDS ORDERED: FENTANYL PATCH REMOVE & WASTE SCH (09:00)
[2017-04-04] MEDS: FENTANYL 25 MCG/HR TDSY TD SCH (09:16)
[2017-04-04 09:26] VITALS: BP 137/71; PULSE 61; TEMP 36.8; O2SAT 99
[2017-04-04] MEDS ORDERED: BOOST BREEZE NUTRITION DRINK 1 BOX PO SCH (09:45)
--- NOTE | 2017-04-05 07:31 | Discharge Summary ---
Discharge Summary Date of Service Apr 05, 2017. Discharge Summary Admission Date: Apr 03, 2017 at 11:25 Discharge Date: Apr 04, 2017 Principal Diagnosis: acute blood lost anemia due to bleeding ulcers proximal to anus Problems/Secondary Diagnoses: acute blood lost anemia due to bleeding ulcers proximal to anus s/p colonoscopy SP Injected and Clips during colonoscopy on 04/01/2017 recent rectal prolapse status post surgery at [facility], Immunizations: Have You Had Influenza Vaccine: Yes History of Tetanus Vaccine?: Yes History of Pneumococcal: Yes History of Hepatitis B Vaccine: Unknown Procedures: colo Consultations: gi Medication Reconciliation Continued Medications: Acetaminophen (Tylenol) 500 Mg Tab 500 MG PO QID, TAB Calcium Carbonate-Cholecalcife (Caltrate 600+D) 1 Tab Tab 1 TAB PO QAM Chlorzoxazone (Parafon Forte Dsc) 500 Mg Tab 500 MG PO QID, TAB Citalopram Hydrobromide (Celexa) 20 Mg Tab 30 MG PO QAM, TAB Fentanyl (Fentanyl) 25 Mcg Tdsy 25 MCG TOP Q72 Flurazepam Hcl (Dalmane) 30 Mg Cap 30 MG PO HS, CAP Gabapentin (Neurontin) 400 Mg Cap 400 MG PO QID, 0 Refills Levothyroxine Sodium (Tirosint) 75 Mcg Cap 1 CAP PO HS Magnesium Chloride-Calcium Car (Slow Magnesium Chloride/ 70-117 mg) 1 Tab Tab 1 TAB PO BID Multivitamin (Multivitamin) Tab 1 TAB PO QAM, TAB Ondansetron Hcl (Zofran) 4 Mg Tab 4 MG PO TID PRN for Nausea or Vomiting, TAB Oxycodone/Acetaminophen 5MG/325MG (Percocet 5MG/325MG) Tab 1 TAB PO QID for 30 Days, #120 TAB PAIN Pantoprazole (Protonix) 40 Mg Tab 40 MG PO BID, #30 TAB Potassium Chloride (Micro-K Ext Rel) 10 Meq Capcr 10 MEQ PO BID, 0 Refills Promethazine Hcl (Phenergan) 25 Mg Tab 25 MG PO Q6H PRN for Nausea, TAB Simvastatin (Zocor) 20 Mg Tab 20 MG PO QPM, TAB Triamterene/Hctz (Dyazide 37.5MG/25MG) Cap 1 TAB PO QAM, CAP Discharge Exam was having some diarrhea possible from lactose containing food, resolved in the pm, tolerated diet Review of Systems: Constitutional: No fever, No chills, No sweats, No weight loss, No weakness , No fatigue, No problem reported Eyes: No worsening of vision, No eye pain, No redness, No discharge, No diplopia, No problem reported ENT: No hearing loss, No unusual epistaxis, No nasal symptoms, No sore throat, No tinnitus, No dental problems, No trouble swallowing, No problem reported Respiratory: No cough, No sputum, No wheezing, No shortness of breath, No dyspnea on exertion, No dyspnea at rest, No hemoptysis, No problem reported Cardiovascular: No chest pain, No orthopnea, No PND, No edema, No claudication, No palpitations, No problem reported Abdomen: + nausea, + diarrhea (better) Musculoskeletal: No joint pain, No muscle pain, No swelling, No calf pain, No problem reported Genitourinary - Female: No dysuria, No urinary frequency, No urinary urgency , No urinary incontinence, No urinary retention, No hematuria, No dysmenorrhea, No menorrhagia, No metrorrhagia, No rash, No vaginal bleeding, No vaginal discharge, No vaginal itching, No vulvodynia, No , No problem reported Genitourinary - Male: No hematuria, No dysuria, No urinary frequency, No urinary urgency, No urinary hesitancy, No urinary retention, No urinary incontinence, No penile discharge, No lesions, No impotence, No problem reported Neurologic: No memory loss, No paralysis, No weakness, No numbness/tingling , No vertigo, No balance problems, No problem reported Psychiatric: No depression symptoms, No anhedonism, No anxiety, No insomnia , No substance abuse, No problem reported Physical Exam: General Appearance: WD/WN Eyes: normal inspection, PERRL ENT: normal ENT inspection, hearing grossly normal Neck: supple, no adenopathy Respiratory/Chest: chest non-tender, lungs clear, normal breath sounds Cardiovascular: regular rate, rhythm, no edema Abdomen / GI: normal bowel sounds, non tender Extremities: normal inspection, no calf tenderness Neurologic/Psychiatric: demand planning manager II-XII nml as tested, no motor/sensory deficits , alert, normal mood/affect Skin: normal color, warm/dry Hospital Course 76-year-old female with recent rectal prolapse status post surgery at [facility] about 20 days ago admitted because of bloody stool on March 30 2017 Rectal bleeding with A few ulcers at 3 cm proximal to the anus per colonoscopy acute blood lost anemia due to bleeding ulcers proximal to anus SP Injected and Clips during colonoscopy on 04/01/2017 Blood in the sigmoid colon and in the descending colon is also on the blood likely from isolation rectal bleeding prior to admission VANITA was done in the ER ER had contacted colorectal surgeon sculpture conservator at [facility] with advice to be monitored overnight for any active bleeding Results of colonoscopy on 04/01/2017 report from GI Preparation of the colon was inadequate. - A few ulcers at 3 cm proximal to the anus. Injected. Clips (MR conditional) were placed. - Blood in the sigmoid colon and in the descending colon. - No specimens collected. Recommendation: - [facility] to [facility] for [facility]. - Clear liquid diet. - Continue present medications. - Will consider ABX and possible CT pelvis imaging if bleeding does not discontinue or if fever/leucocytosis occurs. GI Input appreciated , continue follow-up H&H , if continue bleeding then would recommend a tagged red cell scan initially to see if a region of the GI tract can be identified. At some point if this persists a formal colon prep with full colonoscopy may be necessary to exclude a more proximal bleeding source, I'll may be need EGD , Continue PPI therapy. Antibiotic discontinued Hypertension: Stable - Continue home meds Hypothyroidism: Stable - Continue Tirosint( patient is intolerant to Synthroid) Chronic pain: Stable - Patient receives pain medications from pain clinic - Continue Neurontin, fentanyl patch DVT prophylaxis: SCDs Avoid chemical anticoagulation in light of bleeding Full code Disposition: Increase activities, possible discharge today, talked to dietitian, lactose free diet GI prophylaxis is covered DVT prophylaxis with SCD, no heparin per duct because of GI bleeding Total Time Spent: Less than 30 minutes This includes examination of the patient, discharge planning, medication reconciliation, and communication with other providers. Discharge Instructions Please refer to the electronic Patient Visit Report (Discharge Instructions) for additional information. Additional Copies To Burt Lo M.D.; Krzysztof Ramos M.D.
== END 2017-04-04 14:09 | disposition home or self-care (01) | DRG 988 ==
LOC: C.EDB 18:47 → C.MED 21:18 → ENRESERV 22:18 → OBSVTOIN 04-03 11:25
PROVIDERS: ADMIT Family Medicine; ATTEND Hospitalist
PROC: 0D5QXZZ Destruction of Anus, External Approach (ICD-10-PCS; principal; 2017-04-01 12:19)
DX: D62 Acute posthemorrhagic anemia (principal); K62.6 Ulcer of anus and rectum; I10 Essential (primary) hypertension; E03.9 Hypothyroidism, unspecified; G89.29 Other chronic pain; E78.5 Hyperlipidemia, unspecified; Z87.891 Personal history of nicotine dependence

== ENCOUNTER → 2018-01-19 | Outpatient (CLI) | payer OTHER, BC ==
[~2018-01-19] MED LIST changes: -DRGTP25 TD; +FNTTP25 TOP; +GABA-1220 PO; -GABA1CAP5 PO; -GINGER ROOT PO; +ONDA4TAB46 PO
== END | disposition home or self-care (01) ==
LOC: C.RDSM 13:55
PROVIDERS: ATTEND Physical Medicine & Rehabilitation Sports Medicine
DX: M79.641 Pain in right hand (principal); M25.531 Pain in right wrist

== ENCOUNTER → 2018-05-20 | Outpatient (CLI) | payer OTHER, BC | END | disposition home or self-care (01) | LOC: C.RDSM 13:41 | PROVIDERS: ATTEND Physical Medicine & Rehabilitation Sports Medicine | DX: M79.671 Pain in right foot (principal); Z88.8 Allergy status to other drugs, medicaments and biological substances ==